=== PATIENT | female | born 1935 | race Caucasian/White ===

== ENCOUNTER 2021-04-26 14:40 | Inpatient (IN) | payer MEDICARE, SELFPAY ==
--- NOTE | ~2021-04-26 | US_ITS ---
EXAMINATION: US ABDOMEN LIMITED CLINICAL INFORMATION: Transaminitis. COMPARISON: None TECHNIQUE: Real-time imaging of the right upper quadrant abdominal viscera. FINDINGS: PANCREAS: Normal. LIVER: The liver is normal in size. The liver contour is normal. Liver echotexture is increased.. No focal hepatic lesion. There is no intrahepatic biliary duct dilatation seen. GALLBLADDER: Normal. The gallbladder is physiologically distended without evidence of stones, sludge, polyps, wall thickening or pericholecystic fluid. COMMON BILE DUCT: Normal in caliber measuring 0.5 cm in diameter. RIGHT KIDNEY: Normal. No hydronephrosis. No renal calculi or focal parenchymal lesions. The kidney measures 8.2 cm in maximum dimension. FREE FLUID: None. US/US abdomen limited IMPRESSION: Echogenic liver. Differential would include fatty infiltration and hepatocellular disease. The liver is normal in size and contour.
--- NOTE | ~2021-04-26 | IR_ITS ---
EXAMINATION: IR THORACIC VERTEBROPLASTY CLINICAL INFORMATION: Severe T12 compression fracture. COMPARISON: CT thoracic spine 05/03/2021 TECHNIQUE: Following explaining fluoroscopy-guided T12 kyphoplasty procedure, benefits and risk, and written consent was obtained from the patient. Patient was placed prone on fluoroscopy table and mid back area was cleaned and draped in the usual sterile manner. 1% lidocaine was injected overlying the skin following localization of right T12 pedicle. Following a very small skin incision, a 10-gauge Kyphon needle was inserted from the skin to the level of periosteum and through the periosteum into the T12 posterior vertebra. A second Kyphon needle was advanced in a similar fashion through the skin. A simple drill was advanced to the right and left needle followed by a high tensile balloon insertion. The balloons were inflated to 200 psi for 5 minutes. Subsequently, the balloons were deflated and premixed polymethylmethacrylate was injected through the right needle followed by left needle. After 10 minutes, both needles were removed after achieving adequate amount of cement within the T12 vertebra. Complete hemostasis achieved at puncture site. Patient tolerated the procedure extremely well. Simple Band-Aid applied postprocedure. IV 2 g Kefzol was administered prior to the exam. FINDINGS: There is a moderate compression fracture T12 vertebra with approximately 50% loss of vertebral height. Post-kyphoplasty, there is improvement in the vertebral height by at least 10-20. No extravasation seen. FLUOROSCOPY TIME: 9.1 minutes DOSE AREA PRODUCT: 2303 uGy-m2 (microgray-meter squared) IR/IR kyphoplasty thoracic IMPRESSION: Successful fluoroscopy-guided bipedicular approach T12 kyphoplasty performed.
--- NOTE | ~2021-04-26 | CT_ITS ---
EXAMINATION: CT THORACIC SPINE WITHOUT CONTRAST CLINICAL INFORMATION: T12 acute compression fracture. COMPARISON: MRI thoracic spine 04/29/2021. TECHNIQUE: Axial 2 mm thin and reformatted 2 mm thin sagittal and coronal images of thoracolumbar spine were obtained from inferior endplate through L2-L3 disc level. This CT examination was performed using dose optimization techniques as appropriate, variously including the following: *Automated exposure control *Adjustment of mA and/or kV according to patient size (this includes techniques or standardized protocols for targeted exams where dose is matched to indication/reason for exam; i.e. extremities or head) *Use of iterative reconstruction technique DLP: 599 mGy-cm FINDINGS: On sagittal reconstructed images there is moderate loss of T12 vertebral height by approximately 50%. There is a small posterior bony component projecting into the spinal canal but causing no spinal canal stenosis. The neural foramina are widely patent at the T11-T12 disc level. The adjacent T11, L1 and L2 vertebral heights are maintained. The T10-T11, T11-T12, T12-L1 and L1-L2 disc heights are normal. There is no disc bulge or spinal canal stenosis. No lytic process seen. The paravertebral soft tissues are normal. CT/CT thoracic spine wo con IMPRESSION: Acute T12 compression fracture with approximately 50% loss of vertebral height. There is a very small bony posterior component projecting into the spinal canal but causing no spinal canal stenosis.
--- NOTE | ~2021-04-26 | CT_ITS ---
EXAMINATION: CT HEAD WITHOUT CONTRAST CT CERVICAL SPINE WITHOUT CONTRAST INDICATION: Fall. TECHNIQUE: A noncontrast CT scan was performed from the skull base to the vertex. A noncontrast CT scan of the cervical spine was performed from the base of the skull through T1 at 2.5 mm and 0.625 mm collimation. Coronal and sagittal reformats were obtained at the acquisition workstation. This CT examination was performed using dose optimization techniques as appropriate, variously including the following: * Automated exposure control * Adjustment of mA and/or kV according to patient size (this includes techniques or standardized protocols for targeted exams where dose is matched to indication/reason for exam; i.e. extremities or head) * Use of iterative reconstruction technique Dose length product is 1200 mGy-cm COMPARISON: None FINDINGS: Head: There is no evidence of acute intracranial hemorrhage or territorial infarction. No abnormal mass effect or midline shift is seen. Urdd-xq-wybbz matter differentiation is well preserved. No extra-axial fluid collections are identified. Mild cerebral volume loss. Patchy periventricular and deep white matter hypoattenuation is consistent with mild small vessel ischemic changes. The osseous structures and soft tissues are normal. The mastoid air cells and visualized portions of the paranasal sinuses are well aerated. Cervical Spine: The atlantooccipital and atlantoaxial articulations remain well aligned. Slight straightening of the normal cervical lordosis. C4 vertebral body grade 1 anterolisthesis. No evidence of acute fracture. Vertebral body heights are maintained. Lsaloflb-js-owfkxt spondylosis, more prominent in the mid to lower cervical spine. Multilevel facet degeneration. No prevertebral soft tissue swelling. The paraspinal soft tissues are unremarkable. No appreciated cervical adenopathy. Slight thyroid gland heterogeneity. Mild biapical pleural-parenchymal scarring. CT/CT cervical spine wo con IMPRESSION: 1. No CT evidence of acute intracranial hemorrhage or territorial infarction. 2. No CT evidence of acute cervical spine fracture. 3. Dsofrjda-pf-tfmxkb cervical spondylosis.
--- NOTE | ~2021-04-26 | CT_ITS ---
EXAMINATION: CT THORACIC SPINE CLINICAL INFORMATION: Status post T12 kyphoplasty. COMPARISON: CT thoracic spine performed earlier today on 05/03/2021. MRI thoracic spine 04/29/2021. TECHNIQUE: Axial 2 mm thin and reformatted 2 mm thin sagittal and coronal images of thoracolumbar spine were obtained from mid T10 through mid L2 vertebrae. This CT examination was performed using dose optimization techniques as appropriate, variously including the following: *Automated exposure control *Adjustment of mA and/or kV according to patient size (this includes techniques or standardized protocols for targeted exams where dose is matched to indication/reason for exam; i.e. extremities or head) *Use of iterative reconstruction technique DLP: 534 mGy-cm. FINDINGS: There is an adequate amount of cement occupying the T12 compression fracture. There is mild improvement in the vertebral height post kyphoplasty. No extravasation of cement visualized. The paravertebral soft tissues are normal. CT/CT thoracic spine post vert IMPRESSION: Adequate amount of cement occupying T12 compression fracture. There is no extravasation of cement visualized. There is no spinal canal compromise. No underlying disc bulge or spinal canal stenosis seen at the adjacent T11-T12 or L1-L2 disc levels.
--- NOTE | ~2021-04-26 | CT_ITS ---
EXAMINATION: CT CHEST WITHOUT CONTRAST CLINICAL INFORMATION: History of fall. COMPARISON: None TECHNIQUE: Multidetector volumetric CT imaging of the chest was done. Axial MIP volume rendering provided. Sagittal and coronal reformatted images were obtained. This CT examination was performed using dose optimization techniques as appropriate, variously including the following: *Automated exposure control *Adjustment of mA and/or kV according to patient size (this includes techniques or standardized protocols for targeted exams where dose is matched to indication/reason for exam; i.e. extremities or head) *Use of iterative reconstruction technique DLP: 268.15 mGy-cm FINDINGS: Evaluation for posttraumatic changes is technically limited since no intravascular contrast was administered. Accordingly, vascular injury, and solid visceral injury within the visualized upper abdomen is not excluded. EDUCATION NURSE: Unremarkable. LUNGS: Hypoventilatory changes are present along with motion related artifacts at both lung bases. Presumed pleural parenchymal scar related changes are noted at both lung apices. Otherwise both lung sullivan are clear. Tracheobronchial tree is patent. No evidence of any lung contusion or hemorrhage. MEDIASTINUM: Vascular injury is not excluded due to lack of contrast. Atherosclerotic disease is present within the aorta and is branches including coronary artery calcifications. The thyroid gland is abnormal and is enlarged. Trace amount of pericardial effusion is noted with Hounsfield value of -17. The heart size is within normal limits. Small sliding hiatal hernia is present. PLEURA: There is no pleural effusion. No pleural mass or thickening. AXILLA: No lymphadenopathy. UPPER ABDOMEN: Unremarkable. OSSEOUS STRUCTURES: Moderate to severe anterior compression fracture of T12 vertebral body is noted without any significant soft tissue hematoma, of indeterminate etiology and age. Evaluation is limited since there are no prior studies available for comparison. CT/CT chest wo con IMPRESSION: 1. Moderate to severe anterior compression fracture of T12 vertebral body, of indeterminate age and etiology. Evaluation is limited since there are no prior studies available for comparison. 2. Evaluation for posttraumatic changes is also technically limited since no intravenous oral contrast was administered. Accordingly, vascular injury as well as solid visceral injury within the visualized upper abdomen is not excluded. 3. Hypoventilatory changes and motion related changes are noted at both lung bases with presumed pleuroparenchymal scar at both lung apices. 4. Trace amount of pericardial effusion. 5. No CT evidence of any displaced rib fracture or hemopneumothorax or lung contusion.
--- NOTE | ~2021-04-26 | MR_ITS ---
EXAMINATION: MR THORACIC SPINE WITHOUT CONTRAST CLINICAL INFORMATION: T12 vertebral fracture. COMPARISON: Chest CT April 26, 2021. TECHNIQUE: MRI of the thoracic spine was obtained using routine sequences without contrast. FINDINGS: There is redemonstration of an acute edematous compression fracture at T12 with up to 60% height loss. A mild amount of retropulsion is present which indents the thecal sac without causing effacement of the ventral subarachnoid space and without compressing the distal spinal cord. No additional compression fracture is seen. The remainder of the vertebral bodies maintain normal height. Mild anterolisthesis is seen at T2 on T3. No moderate or severe disc height loss is seen. Chronic fatty endplate changes are seen across multiple levels from T3 through T11. The thoracic cord signal appears normal. At C6-C7 there is moderate left neural foraminal stenosis. No additional significant spinal canal or neural foraminal stenosis is seen. There are small bilateral pleural effusions. The extraspinal soft tissues otherwise appear normal. MR/MR thoracic spine wo con IMPRESSION: Redemonstration of acute edematous compression fracture at T12 with 60% height loss and mild retropulsion without significant narrowing of the spinal canal.
--- NOTE | 2021-04-26 14:54 | ECG_ITS ---
Test Reason : FALL Blood Pressure : / mmHG Vent. Rate : 081 BPM Atrial Rate : 081 BPM P-R Int : 160 ms QRS Dur : 078 ms QT Int : 386 ms P-R-T Axes : 059 -24 059 degrees QTc Int : 448 ms Sinus rhythm with Premature atrial complexes Septal infarct , age undetermined Abnormal ECG When compared with ECG of 03-FEB-2019 07:26, Premature atrial complexes are now Present Septal infarct is now Present Referred By: Eugenia Clemente Electronically Signed By:FELICIA TOUSSAINT
[2021-04-26 14:57] VITALS: BP 133/43; BP 160/80; PULSE 78; PULSE 88; RESP 18; TEMP 36.6; O2SAT 97; O2SAT 99
--- NOTE | 2021-04-26 15:03 | ED_ITS ---
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 had witnessed fall from standing, she has not been eating well and is shaky post completing bactrim for UTI yesterday complaint: fall Onset (ago): week(s) Fall from: standing Fall witnessed: yes, by family Place fall occurred: home Loss of consciousness: none Prolonged down time: no Symptoms prior to fall: lightheadedness and other (has been shaky recently not eating well, tells me she injured her back yesterday) Context: recent illness and history of frequent falls Location of injury: head, chest and back Severity: moderate Quality: aching and throbbing Associated symptoms (after fall): weakness and lightheaded Related Data Allergies Allergy/AdvReac Type Severity Reaction Status Date / Time No Known Allergies Allergy Unverified 07/09/20 15:38 [No Known Allergies*] Review of Systems Review of Systems: Constitutional : No Fever, pos Chills ENT/Mouth : No Ear Pain, No Hoarseness, No sore throat Eyes: No Eye Pain, No Swelling, No Redness, No Foreign Body Cardiovascular : No Chest Pain, No SOB Respiratory : No Cough, No Dyspnea Gastrointestinal : No Nausea, No Vomiting, No Diarrhea, No abdominal Pain Genitourinary : No Dysuria, No Hematuria Musculoskeletal : no joint pain, No Myalgias, No Joint Swelling, pos back pain Skin : No Skin lacerations, No rash Neuro : pos Weakness, No Numbness, No Loss of Consciousness, No Dizziness, No Headache Psych : No Anxiety/Panic, No Depression Heme/Lymph: no easy bruising, no Lymphadenopathy Endocrine : No Polyuria, No Polydipsia All other systems reviewed and are negative PMFSH Past Medical History Attestation statement: The following information was validated with the patient. Medical History Dementia HLD (hyperlipidemia) HTN (hypertension) UTI (urinary tract infection) Social History Social History (Updated 04/26/21 @ 15:31 by Eugenia Clemente DO) Alcohol intake: never Patient Tobacco Use Status: Never used Tobacco Advance Directives: No Advance Directives Information Provided: Yes Physical Exam Vital Signs: Vital Signs: Last Vital Signs Temp 98 F 04/26/21 14:57 Pulse 78 04/26/21 14:57 Resp 18 04/26/21 14:57 BP 133/43 L 04/26/21 14:57 Pulse Ox 99 04/26/21 14:57 Body Mass Index 0.1 Appearance: Alert. Oriented X2 (issue with time). No acute distress. Eyes: Pupils equal, round and reactive to light. ENT: Pharynx normal. Neck: Normal inspection. Neck supple. CVS: Normal heart rate and rhythm. Pulses normal. Chest: ttp along bilateral lower rib areas Respiratory: No respiratory distress. Breath sounds normal. Abdomen: Soft and non-tender. Back: ttp along lower thoracic and upper lumbar Skin: Skin warm and dry. Normal skin color. Normal skin turgor. Extremities: No lower extremity edema. No calf ttp no hip pain, no pain with ROM of LE or UE Neuro: Oriented X 2 (issue with time). No motor deficit. No sensory deficit. Course Course Course Narrative: signed out pending workup Dr. Cardoza [facility] - Fall [facility] Narrative Medical decision making narrative: 85 yo female hx of HTN, UTIs just finished bactrim course yesterday comes in with frequent falls, poor PO intake and being shaky which has worsened since her abx course - at this time given age and falls will need CT head/neck/chest/lumbar spine for trauma, repeat labs, UA, EKG ordered, IV morphine for pain, dispo per results and findings. ECG Data Attestation: I personally reviewed and interpreted this ECG as follows: ECG interpretation date: 04/26/21 ECG interpretation time: 15:12 Interpretation: Rate: 81 Rhythm: NSR [place]: left Normal P waves. Normal ALONZO. Normal QRS complex. ST T wave : normal no ANA qTC: normal prior studies: no acute ischemia The study has been interpreted contemporaneously by me. . Discharge Plan Discharge Clinical Impression: Falls
--- NOTE | 2021-04-26 15:48 | PC.NURSE ---
multiple attempts for iv access and blood labs have been unsuccessful, awaiting us back from icu to attempt advanced iv placement.
--- NOTE | 2021-04-26 16:40 | PC.NURSE ---
continuing to attempt iv access and blood labs via us, nurse at bedside requiring multiple attempts. provider aware att. wctm.
[2021-04-26 16:45] LABS: MANUAL DIFF FLAG NO
[2021-04-26 16:46] LABS: Basophils Percent Auto 0.3 % (0-2); Eosinophils Percent Auto 0.1 % (0-4); Hemoglobin 13.9 g/dl (12.0-16.0); Imm Gran Abs Auto 0.09 X10*3/uL (0.00-0.03); Imm Gran Pct Auto 0.6 % (0.0-0.4); Lymphocytes Absolute Auto 0.9 X10*3/uL (1.2-4.9); Lymphocytes Percent Auto 6.2 % (20-40); Mean Corpuscular HGB Conc 33.9 g/dl (31.0-35.0); Mean Corpuscular Hemoglobin 27.5 pg (27.0-33.0); Mean Corpuscular Volume 81.2 fL (80-98); Mean Platelet Volume 12.5 fL (9.4-12.3); Monocytes Absolute Auto 0.6 X10*3/uL (0.1-1.2); Monocytes Percent Auto 4.5 % (2-11); Neutrophils Absolute Auto 12.3 X10*3/uL (2.0-8.3); Neutrophils Percent Auto 88.3 % (45-73); Platelet Count 257 X10*3/uL (160-400); Red Blood Count 5.05 X10*6/uL (4.20-5.50); Red Cell Distribution Width 14.3 % (11.0-16.0); White Blood Count 13.9 X10*3/uL (4.8-10.8)
[2021-04-26 16:52] LABS: INTERNATIONAL NORM RATIO 1.2 (0.9-1.1); Prothrombin Time 13.1 SEC (9.9-13.0)
[2021-04-26 16:54] LABS: Partial Thromboplastin Time 31.2 SEC (24.1-38.0)
[2021-04-26] MEDS: Morphine Sulfate 4 MG/ML CARTRIDGE IVPUSH (17:10)
[2021-04-26] MEDS: 0.9 % Sodium Chloride 1,000 ML 999 ML IVCONT ×2 (17:10→17:51)
[2021-04-26] MEDS: ondansetron HCL 4 MG/2 ML VIAL IVPUSH (17:10)
[2021-04-26 17:12] LABS: Anion Gap 20 (12-20); Blood Urea Nitrogen 25 mg/dL (9-16); Calcium 10.4 mg/dL (8.4-10.2); Carbon Dioxide 18 mmol/L (22-29); Chloride 100 mmol/L (96-108); Estimated Glomerular Filt Rate 31; Glucose Random 105 mg/dL (60-115); Potassium 5.6 mmol/L (3.3-5.1); Sodium 132 mmol/L (135-145)
[2021-04-26 17:17] LABS: Alanine Aminotransferase 197 U/L (0-31); Albumin Level 4.2 g/dL (3.5-5.0); Alkaline Phosphatase 92 U/L (39-117); Aspartate Amino Transferase 139 U/L (5-31); Bilirubin Direct 0.6 mg/dL (0.0-0.5); Bilirubin Total 1.5 mg/dL (0.0-1.0); Magnesium 2.4 mg/dL (1.6-2.6); Total Protein 8.2 g/dL (6.5-8.0); Troponin-I High Sensitivity 3.9 ng/L (<3.5-17.0)
[2021-04-26] MEDS: Insulin Regular, Human 100 UNIT/ML 3 ML VIAL 10 UNIT IVPUSH (17:51)
[2021-04-26 19:35] LABS: Glucose Urine UA >=1000 MG/DL (NEG); Leukocyte Esterase Urine NEG (NEG); Nitrite Urine NEG (NEG); Urine Blood NEG (NEG); Urine Ketones 15 MG/DL (NEG); Urine Protein NEG (NEG-TRACE)
[2021-04-26 19:36] LABS: Appearance Urine CLEAR; Color Urine YELLOW
[2021-04-26 19:36] LABS: COVID-19 Test Negative (Negative); IDNOW Serial# 9DD0AD1C
[2021-04-26 19:46] LABS: Bacteria Urine TRACE /LPF; Mucus Urine TRACE /LPF; RBC Urine 0-2 /HPF (0); WBC Urine 0-2 /HPF (0-4)
[2021-04-26 20:25] VITALS: PULSE 71; RESP 18; TEMP 36.8; O2SAT 95
--- NOTE | 2021-04-26 20:49 | P.HPHOSP_ITS ---
History of Present Illness Date of Service: 04/26/21 <Ish Han MD - Last Filed: 05/12/21 19:22> Chief Complaint: Fall <Ish Han MD - Last Filed: 05/12/21 19:22> 85-year-old female with a past medical history of hypertension, hyperlipidemia, recurrent UTI, question early dementia presented to the hospital with a chief complaint of fall. Most of the history obtained from the patient and patient's son Reportedly patient has been having recurrent falls- about 7 falls in the past 3 months; today patient was trying to get of the stair showed only she fell backwards and hit her head; witnessed by a home health aide. Denies any loss of consciousness. Patient denies any chest pain palpitations lightheadedness or dizziness before or after the episode. Denies any numbness tingling or focal weakness. Post fall complains of back pain. Denies any urinary retention or stool incontinence. As per the patient's son post episode patient had an episode of vomiting with pink-tinged vomitus. Patient usually walks with the help of a walker at home and has physical therapy twice a week. Denies any difficulty swallowing. Denies any urinary complaints patient's son reported that patient had 2 episodes of UTI in the past couple weeks; finished a course of Bactrim yesterday. Also mentioned that whenever she gets UTI patient becomes confused / encephalopathic. patient's son also reported that over the past few days patient has not been eating good Review of all other systems is negative except mentioned above ER course: Per ER team patient CT head showed no acute intracranial process; CT C-spine showed no acute fracture but noted moderate to severe cervical spine spondy litis; CT chest showed T12 compression fracture -nonfocal examination. On labs patient noted to have mild hyperkalemia, LILY, transaminitis. Admitted for further management. <Ish Han MD - Last Filed: 05/12/21 19:22> [facility] Medical History: Medical History Dementia HLD (hyperlipidemia) HTN (hypertension) UTI (urinary tract infection) <Ish Han MD - Last Filed: 05/12/21 19:22> Social History: Social History Household Members: Family Household Members Other:: pt lives with son, has [employer] Housing: House Do you presently have visiting nurse or other home services: No (unsure) Alcohol intake: never Patient Tobacco Use Status: Never used Tobacco service: No Current occupational status: retired <Ish Han MD - Last Filed: 05/12/21 19:22> Meds Allergies/Adverse reactions: Allergies Allergy/AdvReac Type Severity Reaction Status Date / Time strawberry Allergy Unknown Verified 04/28/21 19:32 <Ish Han MD - Last Filed: 05/12/21 19:22> Active Medications: Current Medications Generic Name Dose Route Start Last Admin Trade Name Freq PRN Reason Stop Dose Admin Atorvastatin Calcium 10 mg 04/27/21 09:00 Atorvastatin Calcium 10 Mg Tablet PO DAILY [facility] Heparin Sodium (Porcine) 5,000 unit 04/26/21 20:30 Heparin Sodium,Porcine 5,000 Unit/Ml Vial SUBCUT Q12H [facility] Sodium Chloride 1,000 mls @ 50 mls/hr 04/26/21 20:45 Ns IVCONT .Q20H [facility] Lidocaine HCl 1 appl 04/27/21 09:00 Lidocaine 4 % Cream Kit TOPICAL DAILY [facility] Protocol Oxycodone HCl 5 mg 04/26/21 20:38 Oxycodone Hcl Immed Release 5 Mg Tablet PO Q6H PRN Breakthrough Pain Pantoprazole Sodium 40 mg 04/27/21 06:30 Pantoprazole Sodium 40 Mg/10 Ml Vial IVPUSH DAILY@0630 [facility] Quetiapine Fumarate 25 mg 04/27/21 09:00 Quetiapine Fumarate 25 Mg Tablet PO DAILY [facility] Senna 17.2 mg 04/26/21 20:24 Sennosides 8.6 Mg Tablet PO BEDTIME PRN Constipation Sodium Chloride 3 ml 04/27/21 00:00 0.9 % Sodium Chloride Flush 3 Ml Syringe IVFLUSH QSHIFT [facility] <Ish Han MD - Last Filed: 05/12/21 19:22> Home medications: Home Medications Medication Instructions Recorded Confirmed Last Taken Type amlodipine 10 mg tablet 1 tab PO DAILY 04/26/21 04/26/21 Unknown History atorvastatin 10 mg tablet 1 tab PO DAILY 04/26/21 04/26/21 Unknown History <Ish Han MD - Last Filed: 05/12/21 19:22> Physical Exam Vital Signs and Narrative: Vital Signs: Last Vital Signs Temp 98.2 F 04/26/21 20:25 Pulse 71 04/26/21 20:25 Resp 18 04/26/21 20:25 BP 133/43 L 04/26/21 14:57 Pulse Ox 95 04/26/21 20:25 Body Mass Index 0.1 <Ish Han MD - Last Filed: 05/12/21 19:22> Gen: Appears be in no acute distress HEENT: NCAT, dry mucosa. Pulmonary: mildly coarse breath sounds CVS: Normal S1-S2 Abdomen: BS+, Soft, Nontender Extremities: Warm well perfused Neuro: Alert and awake. Moves all extremities equally; sensations equal bilaterally; eild-mk-lzps test was not performed given pain in the back; orsepy-yt-zffn test was fairly within normal limits <Ish Han MD - Last Filed: 05/12/21 19:22> Results Labs CBC and Chem 7: : 05/04/21 05:07 05/06/21 06:03 <Ish Han MD - Last Filed: 05/12/21 19:22> Labs: Laboratory Results - last 24 hr 04/26/21 04/26/21 04/26/21 16:39 16:39 16:39 MCV 81.2 MCH 27.5 MCHC 33.9 RDW 14.3 Plt Count 257 MPV 12.5 H Immature Gran % (Auto) 0.6 H Neut % (Auto) 88.3 H Lymph % (Auto) 6.2 L [place] % (Auto) 4.5 Eos % (Auto) 0.1 Baso % (Auto) 0.3 Lymph # (Auto) 0.9 L [place] # (Auto) 0.6 Eos # (Auto) 0.0 Baso # (Auto) 0.0 Abs Immat Gran (auto) 0.09 H Absolute Neuts (auto) 12.3 H Absolute Nucleated RBC 0.000 Nucleated RBC % (auto) 0.0 PT 13.1 H INR 1.2 H APTT 31.2 Anion Gap 20 Estim Creat Clear Calc 25.0 Estimated GFR 31 Random Glucose 105 Calcium 10.4 H Magnesium Total Bilirubin Direct Bilirubin AST ALT Alkaline Phosphatase Total Creatine Kinase Troponin I High Sens Total Protein Albumin Urine Color Urine Appearance Urine pH Ur Specific [place] Urine Protein Urine Glucose (UA) Urine Ketones Urine Blood Urine Nitrite Ur Leukocyte Esterase Urine RBC Urine WBC Ur Squamous Epith Cells Urine Bacteria Hyaline Casts Urine Mucus COVID-19 (GIANNI) COVID-19 Clin Com 04/26/21 04/26/21 04/26/21 16:39 16:39 19:15 MCV MCH MCHC RDW Plt Count MPV Immature Gran % (Auto) Neut % (Auto) Lymph % (Auto) [place] % (Auto) Eos % (Auto) Baso % (Auto) Lymph # (Auto) Carson # (Auto) Eos # (Auto) Baso # (Auto) Abs Immat Gran (auto) Absolute Neuts (auto) Absolute Nucleated RBC Nucleated RBC % (auto) PT INR APTT Anion Gap Estim Creat Clear Calc Estimated GFR Random Glucose Calcium Magnesium 2.4 Total Bilirubin 1.5 H Direct Bilirubin 0.6 H AST 139 H ALT 197 H Alkaline Phosphatase 92 Total Creatine Kinase 17 L Troponin I High Sens 3.9 Total Protein 8.2 H Albumin 4.2 Urine Color Urine Appearance Urine pH Ur Specific [place] Urine Protein Urine Glucose (UA) Urine Ketones Urine Blood Urine Nitrite Ur Leukocyte Esterase Urine RBC Urine WBC Ur Squamous Epith Cells Urine Bacteria Hyaline Casts Urine Mucus COVID-19 (GIANNI) Negative COVID-19 Clin Com See Note 04/26/21 19:28 MCV MCH MCHC RDW Plt Count MPV Immature Gran % (Auto) Neut % (Auto) Lymph % (Auto) [place] % (Auto) Eos % (Auto) Baso % (Auto) Lymph # (Auto) [place] # (Auto) Eos # (Auto) Baso # (Auto) Abs Immat Gran (auto) Absolute Neuts (auto) Absolute Nucleated RBC Nucleated RBC % (auto) PT INR APTT Anion Gap Estim Creat Clear Calc Estimated GFR Random Glucose Calcium Magnesium Total Bilirubin Direct Bilirubin AST ALT Alkaline Phosphatase Total Creatine Kinase Troponin I High Sens Total Protein Albumin Urine Color YELLOW Urine Appearance CLEAR Urine pH 6.0 Ur Specific [place] 1.020 Urine Protein NEG Urine Glucose (UA) >=1000 H Urine Ketones 15 Urine Blood NEG Urine Nitrite NEG Ur Leukocyte Esterase NEG Urine RBC 0-2 Urine WBC 0-2 Ur Squamous Epith Cells NONE Urine Bacteria TRACE Hyaline Casts 5-9 Urine Mucus TRACE COVID-19 (GIANNI) COVID-19 Clin Com <Ish Han MD - Last Filed: 05/12/21 19:22> Imaging Radiologist's Impressions: Impressions Cervical Spine CT 04/26/21 14:54 IMPRESSION: 1. No CT evidence of acute intracranial hemorrhage or territorial infarction. 2. No CT evidence of acute cervical spine fracture. 3. Vxirurjc-fv-jyudpr cervical spondylosis. Chest CT 04/26/21 14:54 IMPRESSION: 1. Moderate to severe anterior compression fracture of T12 vertebral body, of indeterminate age and etiology. Evaluation is limited since there are no prior studies available for comparison. 2. Evaluation for posttraumatic changes is also technically limited since no intravenous oral contrast was administered. Accordingly, vascular injury as well as solid visceral injury within the visualized upper abdomen is not excluded. 3. Hypoventilatory changes and motion related changes are noted at both lung bases with presumed pleuroparenchymal scar at both lung apices. 4. Trace amount of pericardial effusion. 5. No CT evidence of any displaced rib fracture or hemopneumothorax or lung contusion. Head CT 04/26/21 14:[address]: 1[address] evidence of acute intracranial hemorrhage or territorial infarction. 2. No CT evidence of acute cervical spine fracture. 3. Azfficio-rw-vzeutk cervical spondylosis. <Ish Han MD - Last Filed: 05/12/21 19:22> Assessment and Plan (1) Acute kidney failure: Status: Acute <Ish Han MD - Last Filed: 05/12/21 19:22> 85-year-old female with a past medical history of hypertension, hyperlipidemia, question early dementia, recurrent UTI, history of encephalopathy presented to the hospital with a chief complaint of recurrent falls; recently finished a course of Bactrim for UTI; noted to have T12 compression fracture, LILY, hyperkalemia, transaminitis. Recurrent falls: Unclear etiology. Will obtain folate and B12. Patient is already on vitamin-D supplementation at home. Patient has physical therapy twice a week at home. Fall precautions PT/OT Neurology consult for further recommendations CT head showed no acute findings. moderate to severe cervical spine spondylosis/T12 compression fracture: Patient currently grossly nonfocal on examination PT/ OT as mention. Pain control. Patient in patient's son was made aware that no neurosurgeon available - agreed to stay at [place]. Recommended outpatient follow-up with [facility]surgery Clinic hyperkalemia: Patient is being given IV fluids. Will repeat BMP. Likely in the setting of Bactrim use. LILY: Prerenal. Gentle IV fluids. Avoid nephrotoxins. Hold home irbesartan. Hypertension: Patient's blood pressure is on the soft side: Hold home antihypertensives including amlodipine. Orthostatic vitals. Transaminitis: Will obtain right upper quadrant ultrasound and acute hepatitis panel. Trend liver panel. poor intake: Multifactorial. Nutrition consult. Patient/family denies any difficulty swallowing. DVT prophylaxis: Subcu heparin twice daily Code status: Full code he <Ish Han MD - Last Filed: 05/12/21 19:22> Quality Stroke Does the patient have a stroke diagnosis?: No <Ish Han MD - Last Filed: 05/12/21 19:22> VTE Prior VTE?: No <Ish Han MD - Last Filed: 05/12/21 19:22> VTE Risk Level:: Medical - moderate - high <Ish Han MD - Last Filed: 05/12/21 19:22> VTE Device Contraindication: N/A - Device Ordered <Ish Han MD - Last Filed: 05/12/21 19:22> VTE Drug Contraindication: N/A - Med Ordered <Ish Han MD - Last Filed: 05/12/21 19:22>
[2021-04-26] MEDS: Heparin Sodium,Porcine 5,000 UNIT/ML VIAL 5000 UNIT SUBCUT (21:07)
[2021-04-26] MEDS: 0.9 % Sodium Chloride 1,000 ML 50 ML IVCONT (21:08)
[2021-04-26 21:25] VITALS: BP 127/46; PULSE 72; RESP 22; TEMP 36.8; O2SAT 93
[2021-04-26 22:34] VITALS: BP 140/64; PULSE 77; RESP 18; TEMP 36.4; O2SAT 93
[2021-04-26 22:37] LABS: Anion Gap 15 (12-20); Blood Urea Nitrogen 20 mg/dL (9-16); Calcium 9.3 mg/dL (8.4-10.2); Carbon Dioxide 16 mmol/L (22-29); Chloride 107 mmol/L (96-108); Glucose Random 77 mg/dL (60-115); Potassium 4.3 mmol/L (3.3-5.1); Sodium 134 mmol/L (135-145)
[2021-04-26 22:41] LABS: Troponin-I High Sensitivity 5.3 ng/L (<3.5-17.0)
[2021-04-26 23:45] VITALS: BP 144/62; PULSE 72; RESP 18; TEMP 36.3; O2SAT 94
[2021-04-26 23:56] VITALS: RESP 18
[2021-04-27] VITALS (7 sets, daily range): BP systolic 138–158; BP diastolic 61–70; PULSE 60–84; RESP 15–18; TEMP 36.1–36.4; O2SAT 95–97
[2021-04-27] MEDS: Pantoprazole Sodium 40 MG/10 ML VIAL IVPUSH (05:24)
[2021-04-27 05:45] LABS: MANUAL DIFF FLAG NO
[2021-04-27 05:51] LABS: Basophils Percent Auto 0.5 % (0-2); Eosinophils Absolute Auto 0.1 X10*3/uL (0.0-0.4); Eosinophils Percent Auto 0.7 % (0-4); Hematocrit 37.4 % (37-47); Hemoglobin 12.1 g/dl (12.0-16.0); Imm Gran Abs Auto 0.03 X10*3/uL (0.00-0.03); Imm Gran Pct Auto 0.4 % (0.0-0.4); Lymphocytes Absolute Auto 1.4 X10*3/uL (1.2-4.9); Lymphocytes Percent Auto 18.5 % (20-40); Mean Corpuscular HGB Conc 32.4 g/dl (31.0-35.0); Mean Corpuscular Hemoglobin 26.9 pg (27.0-33.0); Mean Corpuscular Volume 83.1 fL (80-98); Mean Platelet Volume 12.9 fL (9.4-12.3); Monocytes Absolute Auto 0.7 X10*3/uL (0.1-1.2); Monocytes Percent Auto 9.5 % (2-11); Neutrophils Absolute Auto 5.2 X10*3/uL (2.0-8.3); Neutrophils Percent Auto 70.4 % (45-73); Platelet Count 197 X10*3/uL (160-400); Red Cell Distribution Width 14.4 % (11.0-16.0); White Blood Count 7.4 X10*3/uL (4.8-10.8)
[2021-04-27 06:26] LABS: Magnesium 2.1 mg/dL (1.6-2.6)
[2021-04-27 06:33] LABS: Anion Gap 13 (12-20); Blood Urea Nitrogen 17 mg/dL (9-16); Calcium 9.5 mg/dL (8.4-10.2); Carbon Dioxide 18 mmol/L (22-29); Chloride 107 mmol/L (96-108); Estimated Glomerular Filt Rate 44; Glucose Random 83 mg/dL (60-115); Potassium 4.4 mmol/L (3.3-5.1); Sodium 134 mmol/L (135-145)
[2021-04-27 06:36] LABS: Alanine Aminotransferase 143 U/L (0-31); Albumin Level 3.5 g/dL (3.5-5.0); Alkaline Phosphatase 78 U/L (39-117); Aspartate Amino Transferase 91 U/L (5-31); Bilirubin Direct 0.5 mg/dL (0.0-0.5); Bilirubin Total 1.3 mg/dL (0.0-1.0); Total Protein 6.7 g/dL (6.5-8.0)
[2021-04-27 06:46] LABS: Thyroid Stimulating Hormone 0.37 uIU/mL (0.32-4.0)
[2021-04-27 08:33] LABS: Folate 3.6 ng/mL (> or = 4.0); Vitamin B12 484 pg/mL (200-900)
[2021-04-27] MEDS: Heparin Sodium,Porcine 5,000 UNIT/ML VIAL 5000 UNIT SUBCUT ×2 (09:26→21:20)
[2021-04-27] MEDS: QUEtiapine Fumarate 25 MG TABLET PO (09:26)
[2021-04-27] MEDS: Atorvastatin Calcium 10 MG TABLET PO (09:26)
[2021-04-27] MEDS: Lidocaine 4 % Cream KIT 1 APPL TOPICAL (09:36)
--- NOTE | 2021-04-27 09:46 | P.CNGI_ITS ---
History of Present Illness Data of Consult Service Date: 04/27/21 Requesting physician: Ish Han Primary Care Provider: Unknown Physician HPI Reason for consult: abn LFT 85-year-old female with a past medical history of hypertension, hyperlipidemia, recurrent UTI, possible early dementia who I am asked to see for abn LFT hx from son and daughter in law, some from patient but variable quality of info due to dementia She initially presented with recurrent fall history and back pain. She Denies any loss of consciousness. Patient denies any chest pain palpitations lightheadedness or dizziness before or after the episode and no numbness tingling or focal weakness. after the most recent epsidoe prior to admission she had pink tinged emesis. Denies melena, no rectal bleeding. She had been dx with UTI and just finished bactrim day before. Labs checked and mils ASt, ALT elevation--bili and AP nml Imaging revealed compression fracture at T12 US with echogenic liver, no focal lesion Review of Systems Review of Systems: Constitutional : No Weight loss, No Fever, No Chills ENT/Mouth : No sore throat, No Rhinorrhea Eyes: No Swelling, No Redness Cardiovascular : No Chest Pain, No SOB, No Edema Respiratory : No Cough, No Sputum, No Wheezing Gastrointestinal : see HPI Genitourinary : NO Dysuria, No Urinary Frequency, No Hematuria, No Urgency Musculoskeletal : + back pain, + Myalgias, No Joint Swelling Skin : No Skin Lesions, No rash Neuro : No Weakness, No Numbness, No Dizziness, No Headache Psych : No Anxiety/Panic, No Depression Heme/Lymph: No Bruising, No Lymphadenopathy Endocrine : No Polyuria, No Polydipsia All other systems reviewed and are negative. [facility] Past Medical History Medical History Dementia HLD (hyperlipidemia) HTN (hypertension) UTI (urinary tract infection) Social History Social History (Updated 04/26/21 @ 15:31 by Eugenia Clemente DO) Household Members: Family Household Members Other:: pt lives with son, has [employer] Housing: House Do you presently have visiting nurse or other home services: No (unsure) Alcohol intake: never Patient Tobacco Use Status: Never used Tobacco Use of substances other than those prescribed or required for medical reasons: No Currently Displaying Signs/Symptoms of Drug Intoxication Withdrawal: No Have you been hit, kicked, punched, or otherwise hurt by someone within the past year? If so, by whom?: No Do you feel safe in your current relationship?: No Current Relationship Is there a partner from a previous relationship who is making you feel unsafe now?: No Are you made to feel afraid or neglected: No Advance Directives: No Advance Directives Information Provided: Yes Do you have thoughts of harming others: None Do you have a plan to hurt others: No Plan Recently lost weight without trying: Unsure Nutrition Risks: No Nutritional Risk service: No Current occupational status: retired [employer] Allergies Allergy/AdvReac Type Severity Reaction Status Date / Time No Known Allergies Allergy Verified 04/26/21 20:21 [No Known Allergies*] Active Medications: Current Medications Generic Name Dose Route Start Last Admin Trade Name Freq PRN Reason Stop Dose Admin Atorvastatin Calcium 10 mg 04/27/21 09:00 04/27/21 09:26 Atorvastatin Calcium 10 Mg Tablet PO 10 mg DAILY BELEM Administration Heparin Sodium (Porcine) 5,000 unit 04/26/21 20:30 04/27/21 09:26 Heparin Sodium,Porcine 5,000 Unit/Ml Vial SUBCUT 5,000 unit Q12H BELEM Administration Sodium Chloride 1,000 mls @ 50 mls/hr 04/26/21 20:45 04/26/21 21:08 Ns IVCONT 50 mls/hr .Q20H BELEM Administration Lidocaine HCl 1 appl 04/27/21 09:00 04/27/21 09:36 Lidocaine 4 % Cream Kit TOPICAL 1 appl DAILY BELEM Administration Protocol Oxycodone HCl 5 mg 04/26/21 20:38 Oxycodone Hcl Immed Release 5 Mg Tablet PO Q6H PRN Breakthrough Pain Pantoprazole Sodium 40 mg 04/27/21 06:30 04/27/21 05:24 Pantoprazole Sodium 40 Mg/10 Ml Vial IVPUSH 40 mg DAILY@0630 BELEM Administration Quetiapine Fumarate 25 mg 04/27/21 09:00 04/27/21 09:26 Quetiapine Fumarate 25 Mg Tablet PO 25 mg DAILY BELEM Administration Senna 17.2 mg 04/26/21 20:24 Sennosides 8.6 Mg Tablet PO BEDTIME PRN Constipation Sodium Chloride 3 ml 04/27/21 00:00 04/27/21 09:26 0.9 % Sodium Chloride Flush 3 Ml Syringe IVFLUSH Not Given QSHIFT [facility] Home Medications Medication Instructions Recorded Confirmed Last Taken Type amlodipine 1 tab PO DAILY 04/26/21 04/26/21 Unknown History atorvastatin 1 tab PO DAILY 04/26/21 04/26/21 Unknown History irbesartan 1 tab PO DAILY 04/26/21 04/26/21 Unknown History quetiapine 1 tab PO DAILY 04/26/21 04/26/21 Unknown History sulfamethoxazole-trimethoprim 1 tab PO Q12H 04/26/21 04/26/21 Unknown History Physical Exam Vital Signs: Vital Signs: Last Vital Signs Temp 97.6 F 04/27/21 07:06 Pulse 60 04/27/21 08:20 Resp 18 04/27/21 07:06 BP 138/61 04/27/21 08:20 Pulse Ox 95 04/27/21 08:20 Body Mass Index 0.1 EXAM: GENERAL: The patient is frail VITAL SIGNS:see workflow HEENT: Nonicteric sclerae, PERRLA, EOMI. Oropharynx clear. Moist mucous membranes. Conjunctivae appear well perfused. No thyroid mass. CHEST: Chest wall is nontender. HEART: Regular rate and rhythm without murmurs. LUNGS: Clear to auscultation bilaterally. ABDOMEN: Soft, positive bowel sounds, nontender, no organomegaly.no flank tenderness SKIN: No rash, no excessive bruising, petechiae, or purpura. NEUROLOGIC: Cranial nerves II-XII intact without motor/sensory deficit. AAO x 2 Psych- memory impairment, but affect is nml Results Labs CBC & Chem 7: 04/27/21 05:21 04/27/21 05:21 Labs: Short CBC 04/26/21 04/26/21 04/27/21 Range/Units 16:39 16:39 05:21 WBC 13.9 H 7.4 (4.8-10.8) X10*3/uL Hgb 13.9 12.1 (12.0-16.0) g/dl Hct 41.0 37.4 (37-47) % Plt Count 257 197 (160-400) X10*3/uL AST 139 H (5-31) U/L ALT 197 H (0-31) U/L 04/27/21 Range/Units 05:21 WBC (4.8-10.8) X10*3/uL Hgb (12.0-16.0) g/dl Hct (37-47) % Plt Count (160-400) X10*3/uL AST 91 H (5-31) U/L ALT 143 H (0-31) U/L BMP 04/26/21 04/26/21 04/27/21 16:39 21:56 05:21 Sodium 132 L 134 L 134 L Potassium 5.6 H 4.3 D 4.4 Chloride 100 107 107 Carbon Dioxide 18 L 16 L 18 L BUN 25 H 20 H 17 H Creatinine 1.57 H 1.31 1.17 Calcium 10.4 H 9.3 D 9.5 Cardiac Enzymes 04/26/21 Range/Units 16:39 Total Creatine Kinase 17 L (26-140) U/L Liver Function 04/26/21 04/27/21 Range/Units 16:39 05:21 Total Bilirubin 1.5 H 1.3 H (0.0-1.0) mg/dL Direct Bilirubin 0.6 H 0.5 (0.0-0.5) mg/dL AST 139 H 91 H (5-31) U/L ALT 197 H 143 H (0-31) U/L Alkaline Phosphatase 92 78 (39-117) U/L Albumin 4.2 3.5 (3.5-5.0) g/dL Urine 04/26/21 Range/Units 19:28 Urine Color YELLOW Urine Appearance CLEAR Urine pH 6.0 (5.0-8.0) Ur Specific [place] 1.020 (1.005-1.025) Urine Protein NEG (NEG-TRACE) MG/DL Urine Glucose (UA) >=1000 H (NEG) MG/DL Assessment and Plan (1) Elevated LFTs: Status: Acute (2) Falls: Qualifiers: Encounter type: initial encounter Qualified Code(s): W19.XXXA - Unspecified fall, initial encounter Status: Acute 1/ Abn LFT suspect 2/2 recent abx use vs from fall and muscle trauma. May have HUYNH as well 2/ [place] tinged emesis in setting of fall and pain, HGB stable does not appear to be too concerning at this time, may be some drop due to tissue injusry and bruising, fluids and dilution. PLAN; 1/ Trend LFT< check CPK 2/ cont to monitor HGB if falls further then can work up for GI blood loss, but may also be from bruising and submucosal bleeding Procedures Date of Service Date of Service: 04/27/21
--- NOTE | 2021-04-27 09:50 | MHC.CM.PN ---
CM met briefly at bedside with Patient and also spoke with Son/HCP/Cassius at [phone] and addressed IMM, providing them with the original and by placing a copy on the chart. Patient lives in a house with her Son/Cassius and has 24 hour care between her 2 Sons, [id number] and privately hired [employer]. Patient was active with [facility]CO[facility] and the goal for dc is [facility]; CM has initiated and will follow for dc planning. PCP/MOSAICIST is Vashti Mccall.Patient has a rollator.
--- NOTE | 2021-04-27 10:31 | MHC.CLN ---
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
--- NOTE | 2021-04-27 12:29 | P.CNNE_ITS ---
History of Present Illness Data of Consult Service Date: 04/27/21 Primary Care Provider: Unknown Physician HPI Reason for consult: Advanced Alzheimer's disease. Multiple falls with vertebral fracture T12 This is a 85-year-old woman with a history of Alzheimer's disease for 2-4 years that has been slowly getting worse. For the last 3-1/2 months she has been living with one of her sons who takes care of her. She frequently doesn't recognize who he is and does not recognize the [id number] and becomes agita chelsey because of her. She's had several falls because she loses her balance and may not use the walker. She sometimes gets up in the night and wanders. On this particular admission, she took a step from one room to the other lost her balance, fell backwarrds hitting the back of her head on some carpet but landed on her back and developed severe back pain with a T12 compression fracture. The patient requires care 24 7. She refuses to bathe. He personal hygiene issues and safety issues are present. She is given a melatonin 10 mg and cervical 10 mg at night to sedate her and help her sleep but it makes her very limp. Sometimes she gets up in the night and wanders. She was evaluated by Dr. Mondragon in [place] a year ago. She is currently on no other medications for the Alzheimer's disease. Review of Systems Eyes: Eyes: Reports no additional eye complaints ENT: Reports system reviewed and no additional complaints, except as documented Cardiovascular: Cardiovascular: Reports no additional cardiovascular complaints Respiratory: Respiratory: Reports no additional respiratory complaints Gastrointestinal: Gastrointestinal: Reports no additional gastrointestinal c omplaints Musculoskeletal: Musculoskeletal: Reports no additional musculoskeletal complaints Integumentary/Breasts: Skin/Breast: Reports system reviewed and no additional complaints, except as docu Neurologic: Reports as per HPI Psychiatric: Psychiatric: Reports as per HPI Endocrine: Endocrine: Reports no additional endocrine complaints Hematologic/Lymphatic: Hematologic/Lymphatic: Reports no additional hematologic/lymphatic complaints Allergic/Immunologic: Allergic/Immunologic: Reports no additional allergic/immunologic complaints [facility] Past Medical History Medical History Dementia HLD (hyperlipidemia) HTN (hypertension) UTI (urinary tract infection) Social History Social History (Updated 04/26/21 @ 15:31 by Eugenia Clemente DO) Household Members: Family Household Members Other:: pt lives with son, has [employer]IOGR[employer]AM[employer]GR[employer]HER Housing: House Do you presently have visiting nurse or other home services: No (unsure) Alcohol intake: never Patient Tobacco Use Status: Never used Tobacco Use of substances other than those prescribed or required for medical reasons: No Currently Displaying Signs/Symptoms of Drug Intoxication Withdrawal: No Have you been hit, kicked, punched, or otherwise hurt by someone within the past year? If so, by whom?: No Do you feel safe in your current relationship?: No Current Relationship Is there a partner from a previous relationship who is making you feel unsafe no w?: No Are you made to feel afraid or neglected: No Advance Directives: No Advance Directives Information Provided: Yes Do you have thoughts of harming others: None Do you have a plan to hurt others: No Plan Recently lost weight without trying: Unsure Nutrition Risks: No Nutritional Risk service: No Current occupational status: retired Meds Allergies Allergy/AdvReac Type Severity Reaction Status Date / Time No Known Allergies Allergy Verified 04/26/21 20:21 [No Known Allergies*] Active Medications: Current Medications Generic Name Dose Route Start Last Admin Trade Name Freq PRN Reason Stop Dose Admin Atorvastatin Calcium 10 mg 04/27/21 09:00 04/27/21 09:26 Atorvastatin Calcium 10 Mg Tablet PO 10 mg DAILY BELEM Administration Heparin Sodium (Porcine) 5,000 unit 04/26/21 20:30 04/27/21 09:26 Heparin Sodium,Porcine 5,000 Unit/Ml Vial SUBCUT 5,000 unit Q12H BELEM Administration Sodium Chloride 1,000 mls @ 50 mls/hr 04/26/21 20:45 04/26/21 21:08 Ns IVCONT 50 mls/hr .Q20H BELEM Administration Lidocaine HCl 1 appl 04/27/21 09:00 04/27/21 09:36 Lidocaine 4 % Cream Kit TOPICAL 1 appl DAILY BELEM Administration Protocol Oxycodone HCl 5 mg 04/26/21 20:38 Oxycodone Hcl Immed Release 5 Mg Tablet PO Q6H PRN Breakthrough Pain Pantoprazole Sodium 40 mg 04/27/21 06:30 04/27/21 05:24 Pantoprazole Sodium 40 Mg/10 Ml Vial IVPUSH 40 mg DAILY@0630 BELEM Administration Quetiapine Fumarate 25 mg 04/27/21 09:00 04/27/21 09:26 Quetiapine Fumarate 25 Mg Tablet PO 25 mg DAILY BELEM Administration Senna 17.2 mg 04/26/21 20:24 Sennosides 8.6 Mg Tablet PO BEDTIME PRN Constipation Sodium Chloride 3 ml 04/27/21 00:00 04/27/21 09:26 0.9 % Sodium Chloride Flush 3 Ml Syringe IVFLUSH Not Given QSHIFT [facility] Home Medications Medication Instructions Recorded Confirmed Last Taken Type amlodipine 1 tab PO DAILY 04/26/21 04/26/21 Unknown History atorvastatin 1 tab PO DAILY 04/26/21 04/26/21 Unknown History irbesartan 1 tab PO DAILY 04/26/21 04/26/21 Unknown History quetiapine 1 tab PO DAILY 04/26/21 04/26/21 Unknown History sulfamethoxazole-trimethoprim 1 tab PO Q12H 04/26/21 04/26/21 Unknown History Physical Exam Vital Signs: Vital Signs: Last Vital Signs Temp 97.6 F 04/27/21 11:04 Pulse 67 04/27/21 11:04 Resp 18 04/27/21 11:04 BP 149/67 H 04/27/21 11:04 Pulse Ox 95 04/27/21 11:04 Body Mass Index 0.1 Const: General: comfortable, no acute distress and well developed Nutritional Appearance: well nourished Orientation/consciousness: oriented to person HENMT: Head: Yes normal to inspection, Yes normocephalic and Yes atraumatic Ears: hearing grossly normal bilaterally General nose exam: Normal external nose present Face and sinus: Yes normal facial exam Mouth: Normal oral and palatal mucosa present Eyes: General: appearance normal, both eyes and all related structures Visual Sullivan: normal visual sullivan by confrontation Alignment and Position: alignment normal Periorbital: periorbital findings normal Eyelids: Yes eyelids normal Conjunctivae: conjunctivae normal Sclerae: sclerae normal Corneas: corneas normal Pupils: Equal, round and reactive pupils present and Pupil accommodation reflex normal EOM: EOMs intact bilaterally Direct Ophthalmoscopy: normal light reflex Neck: Neck: Yes normal visual inspection, Yes full ROM and Yes no meningeal signs Thyroid: Thyroid normal Carotids: normal carotid upstroke and bounding pulses Chest: Chest palpation & inspection: normal inspection of the chest Resp: Effort & Inspection: normal respiratory effort Auscultation: clear to auscultation bilaterally Cardio: Rate: regular rate Rhythm: regular rhythm Heart sounds: S1 normal heart sound present and S2 normal heart sound present Peripheral pulses: Peripheral pulses 2+ throughout GI: Inspection: Yes normal to inspection Percussion: Yes normal to percussion Auscultation: normal bowel sounds Rectal Exam - Female: defer red Back/Spine/Pelvis: Cervical Spine: normal cervical lordosis and cervical ROM normal Thoracic/Lumbar Spine: thoracic and lumbar spine normal to inspection Skin: General skin exam: no rashes or lesions noted Neuro: Other: She is lethargic, possibly from the morphine that was given but can be aroused. Does not talk much or follow commands and the does not provide any information. All information was obtained from her son and [id number] were at bedside. General: oriented to person, no meningeal signs, no focal motor deficits, CN's II-XI intact bilaterally and deep tendon reflexes 2+ bilaterally Cranial nerves: Yes Equal, round and reactive pupils present, Yes Normal facial strength present, Yes Midline tongue present and Yes Ability to bilaterally rotate head present Cognition (Neuro): abnormal cognition Speech: Other speech findings present (Neuro) Motor exam (neuro): no tremor noted, no asterixis, Motor fasciculations not present, Normal motor muscle tone present throughout and Motor abnormalities not present Deep tendon reflexes (DTR's): Right triceps reflex intensity grade: 1+, Left triceps reflex intensity grade: 1+, Rt Biceps (C5, C6): 1+, Left biceps reflex intensity grade: 1+, Right brachioradialis reflex intensity grade: 1+, Left brachioradialis reflex intensity grade: 1+, Right patellar reflex intensity grade: 1+, Left patellar reflex intensity grade: 1+, Right ankle reflex intensity grade: 1+ and Left ankle reflex intensity grade: 1+ Plantar Reflex Responses: downgoing: right, left and bilateral Pupils: Normal pupillary reactivity/response: bilateral Extrem: General: Yes normal to inspection, Yes normal exam except as noted and Yes no pedal edema Psych: Appearance: grossly normal Mental Status: mental status grossly normal Speech and movement: Normal speech and movement present and Clear speech present Affect: normal affect Attitude: cooperative Thought process: Normal thought process present Results Labs CBC & Chem 7: 04/27/21 05:21 04/27/21 05:21 Labs: Short CBC 04/26/21 04/27/21 Range/Units 16:39 05:21 WBC 13.9 H 7.4 (4.8-10.8) X10*3/uL Hgb 13.9 12.1 (12.0-16.0) g/dl Hct 41.0 37.4 (37-47) % Plt Count 257 197 (160-400) X10*3/uL BMP 04/26/21 04/26/21 04/27/21 16:39 21:56 05:21 Sodium 132 L 134 L 134 L Potassium 5.6 H 4.3 D 4.4 Chloride 100 107 107 Carbon Dioxide 18 L 16 L 18 L BUN 25 H 20 H 17 H Creatinine 1.57 H 1.31 1.17 Calcium 10.4 H 9.3 D 9.5 Cardiac Enzymes 04/26/21 Range/Units 16:39 Total Creatine Kinase 17 L (26-140) U/L Liver Function 04/26/21 04/27/21 Range/Units 16:39 05:21 Total Bilirubin 1.5 H 1.3 H (0.0-1.0) mg/dL Direct Bilirubin 0.6 H 0.5 (0.0-0.5) mg/dL AST 139 H 91 H (5-31) U/L ALT 197 H 143 H (0-31) U/L Alkaline Phosphatase 92 78 (39-117) U/L Albumin 4.2 3.5 (3.5-5.0) g/dL Urine 04/26/21 Range/Units 19:28 Urine Color YELLOW Urine Appearance CLEAR Urine pH 6.0 (5.0-8.0) Ur Specific [place] 1.020 (1.005-1.025) Urine Protein NEG (NEG-TRACE) MG/DL Urine Glucose (UA) >=1000 H (NEG) MG/DL Assessment and Plan (1) Alzheimer's disease: Status: Acute consider Risperidone 0.5mg qd prn for agitation (2) Falls: Qualifiers: Encounter type: initial encounter Qualified Code(s): W19.XXXA - Unspecified fall, initial encounter Status: Acute needs walker time study technologist and supervision. (3) Compression fracture of T12 vertebra: Status: Acute Gabapentin 100mg tid for back pain. Assess for vertebroplasty Procedures Date of Service Date of Service: 04/27/21
--- NOTE | 2021-04-27 13:15 | MHC.SL.SWA ---
Speech Pathologist Impression: Risk of Aspiration Oral Phase Dysphagia Dysphasia Diet Status: Downgrade Liquid Consistency and Strategies for Safe Swallow: Liquid Intake Recommendation: Thin Liquid Intake Strategies: Small Sips Solid Food Consistency: Dietary Recommendations: Grnd/Mech Altered (NDD2) Additional Modifications to Solid Foods: Recommend ground/mech altered (NDD2) solids due to moderate oral phase dysphagia. Recommend food to be moistened with sauce/gravy when possible. Recommend avoid tough/sticky foods. Patient must have dentures in while eating. Oral Medication Intake: Whole with Liquid Compensatory Strategies and Precautions to be Taken for Safe Swallow: Sitting Upright (90 deg) Double Swallow Small Bites and Sips Alternate Liquids/Solids Rate of Ingestion Change Oral Check Avoid Specific Foods Supervision While Eating and Drinking for Safe Swallow: Total Assistance Foods to Avoid: Tough/sticky foods Swallowing Recommended Treatments: Compens. Strategy Educat. Recommendation for Speech: Inpatient Speech Therapy Comment: MANAGER BASKET[employer] to follow up tomorrow morning to ensure tolerance. Ramp Flight Attendant Clinican/Clinical Fellow: No Supervisory Statement: I have reviewed and agree with the student/clinical fellow's documentation: N/A Speech Language Pathologist: Yashira Robert M.A., CCC-MANAGER BASKETBALL
--- NOTE | 2021-04-27 13:48 | HO.PM.IMPN ---
Subjective Subjective Date of Service: 04/27/21 Interval History: The patient was seen and evaluated this morning Laying in bed, looks comfortable overall Denies any fever, chills or shortness of breath No reported other overnight events. Systemic review: No fever, chills or weakness No chest pain, palpitation No shortness of breath or coughing No abdominal pain, nausea or vomiting No urinary symptoms No any rash or wounds Reporting some back pain Physical Exam Vital Signs: Vital Signs: Last Vital Signs Temp 97.6 F 04/27/21 11:04 Pulse 67 04/27/21 11:04 Resp 18 04/27/21 11:04 BP 149/67 H 04/27/21 11:04 Pulse Ox 95 04/27/21 11:04 Body Mass Index 0.1 Const: Other: Constitutional : Alert, oriented, not in distress Neck : Normal inspection, Supple Cardiovascular : RRR, S1 S2, no lower extremity edema Respiratory : Good bilateral air entry, no crackles, wheezes or rhonchi Gastrointestinal: soft, lax, Normal bowel sounds, Non tender Skin : Warm/Dry Neurological : Alert & oriented x2, No focal deficit , Moves all extremities equally; sensations equal bilaterally Objective Data Current Medications Generic Name Dose Route Start Last Admin Trade Name Freq PRN Reason Stop Dose Admin Atorvastatin Calcium 10 mg 04/27/21 09:00 04/27/21 09:26 Atorvastatin Calcium 10 Mg Tablet PO 10 mg DAILY BELEM Administration Heparin Sodium (Porcine) 5,000 unit 04/26/21 20:30 04/27/21 09:26 Heparin Sodium,Porcine 5,000 Unit/Ml Vial SUBCUT 5,000 unit Q12H BELEM Administration Sodium Chloride 1,000 mls @ 50 mls/hr 04/26/21 20:45 04/26/21 21:08 Ns IVCONT 50 mls/hr .Q20H BELEM Administration Lidocaine HCl 1 appl 04/27/21 09:00 04/27/21 09:36 Lidocaine 4 % Cream Kit TOPICAL 1 appl DAILY BELEM Administration Protocol Oxycodone HCl 5 mg 04/26/21 20:38 Oxycodone Hcl Immed Release 5 Mg Tablet PO Q6H PRN Breakthrough Pain Pantoprazole Sodium 40 mg 04/27/21 06:30 04/27/21 05:24 Pantoprazole Sodium 40 Mg/10 Ml Vial IVPUSH 40 mg DAILY@0630 BELEM Administration Quetiapine Fumarate 25 mg 07/06/21 09:00 04/27/21 09:26 Quetiapine Fumarate 25 Mg Tablet PO 25 mg DAILY BELEM Administration Senna 17.2 mg 04/26/21 20:24 Sennosides 8.6 Mg Tablet PO BEDTIME PRN Constipation Sodium Chloride 3 ml 04/27/21 00:00 04/27/21 09:26 0.9 % Sodium Chloride Flush 3 Ml Syringe IVFLUSH Not Given QSHIFT [facility] Labs CBC & Chem 7: 04/27/21 05:21 04/27/21 05:21 Labs: Laboratory Results - last 24 hr 04/26/21 04/26/21 04/26/21 16:39 16:39 16:39 WBC 13.9 H RBC 5.05 Hgb 13.9 Hct 41.0 MCV 81.2 MCH 27.5 MCHC 33.9 RDW 14.3 Plt Count 257 MPV 12.5 H Immature Gran % (Auto) 0.6 H Neut % (Auto) 88.3 H Lymph % (Auto) 6.2 L [place] % (Auto) 4.5 Eos % (Auto) 0.1 Baso % (Auto) 0.3 Lymph # (Auto) 0.9 L [place] # (Auto) 0.6 Eos # (Auto) 0.0 Baso # (Auto) 0.0 Abs Immat Gran (auto) 0.09 H Absolute Neuts (auto) 12.3 H Absolute Nucleated RBC 0.000 Nucleated RBC % (auto) 0.0 PT 13.1 H INR 1.2 H APTT 31.2 Sodium 132 L Potassium 5.6 H Chloride 100 Carbon Dioxide 18 L Anion Gap 20 BUN 25 H Creatinine 1.57 H Estim Creat Clear Calc 25.0 Estimated GFR 31 Random Glucose 105 Calcium 10.4 H Magnesium Total Bilirubin Direct Bilirubin AST ALT Alkaline Phosphatase Total Creatine Kinase Troponin I High Sens Total Protein Albumin Vitamin B12 Folate TSH Urine Color Urine Appearance Urine pH Ur Specific [place] Urine Protein Urine Glucose (UA) Urine Ketones Urine Blood Urine Nitrite Ur Leukocyte Esterase Urine RBC Urine WBC Ur Squamous Epith Cells Urine Bacteria Hyaline Casts Urine Mucus COVID-19 (GIANNI) COVID-19 Clin Com 04/26/21 04/26/21 04/26/21 16:39 16:39 19:15 WBC RBC Hgb Hct MCV MCH MCHC RDW Plt Count MPV Immature Gran % (Auto) Neut % (Auto) Lymph % (Auto) [place] % (Auto) Eos % (Auto) Baso % (Auto) Lymph # (Auto) [place] # (Auto) Eos # (Auto) Baso # (Auto) Abs Immat Gran (auto) Absolute Neuts (auto) Absolute Nucleated RBC Nucleated RBC % (auto) PT INR APTT Sodium Potassium Chloride Carbon Dioxide Anion Gap BUN Creatinine Estim Creat Clear Calc Estimated GFR Random Glucose Calcium Magnesium 2.4 Total Bilirubin 1.5 H Direct Bilirubin 0.6 H AST 139 H ALT 197 H Alkaline Phosphatase 92 Total Creatine Kinase 17 L Troponin I High Sens 3.9 Total Protein 8.2 H Albumin 4.2 Vitamin B12 Folate TSH Urine Color Urine Appearance Urine pH Ur Specific [place] Urine Protein Urine Glucose (UA) Urine Ketones Urine Blood Urine Nitrite Ur Leukocyte Esterase Urine RBC Urine WBC Ur Squamous Epith Cells Urine Bacteria Hyaline Casts Urine Mucus COVID-19 (GIANNI) Negative COVID-19 Clin Com See Note 04/26/21 04/26/21 04/26/21 19:28 21:56 21:56 WBC RBC Hgb Hct MCV MCH MCHC RDW Plt Count MPV Immature Gran % (Auto) Neut % (Auto) Lymph % (Auto) [place] % (Auto) Eos % (Auto) Baso % (Auto) Lymph # (Auto) [place] # (Auto) Eos # (Auto) Baso # (Auto) Abs Immat Gran (auto) Absolute Neuts (auto) Absolute Nucleated RBC Nucleated RBC % (auto) PT INR APTT Sodium 134 L Potassium 4.3 D Chloride 107 Carbon Dioxide 16 L Anion Gap 15 BUN 20 H Creatinine 1.31 Estim Creat Clear Calc 28.0 Estimated GFR 39 Random Glucose 77 Calcium 9.3 D Magnesium Total Bilirubin Direct Bilirubin AST ALT Alkaline Phosphatase Total Creatine Kinase Troponin I High Sens 5.3 Total Protein Albumin Vitamin B12 Folate TSH Urine Color YELLOW Urine Appearance CLEAR Urine pH 6.0 Ur Specific [place] 1.020 Urine Protein NEG Urine Glucose (UA) >=1000 H Urine Ketones 15 Urine Blood NEG Urine Nitrite NEG Ur Leukocyte Esterase NEG Urine RBC 0-2 Urine WBC 0-2 Ur Squamous Epith Cells NONE Urine Bacteria TRACE Hyaline Casts 5-9 Urine Mucus TRACE COVID-19 (GIANNI) COVID-19 Clin Com 04/27/21 04/27/21 04/27/21 05:21 05:21 05:21 WBC 7.4 RBC 4.50 Hgb 12.1 Hct 37.4 MCV 83.1 MCH 26.9 L MCHC 32.4 RDW 14.4 Plt Count 197 MPV 12.9 H Immature Gran % (Auto) 0.4 Neut % (Auto) 70.4 Lymph % (Auto) 18.5 L [place] % (Auto) 9.5 Eos % (Auto) 0.7 Baso % (Auto) 0.5 Lymph # (Auto) 1.4 [place] # (Auto) 0.7 Eos # (Auto) 0.1 Baso # (Auto) 0.0 Abs Immat Gran (auto) 0.03 Absolute Neuts (auto) 5.2 Absolute Nucleated RBC 0.000 Nucleated RBC % (auto) 0.0 PT INR APTT Sodium Potassium Chloride Carbon Dioxide Anion Gap BUN Creatinine Estim Creat Clear Calc Estimated GFR Random Glucose Calcium Magnesium Total Bilirubin Direct Bilirubin AST ALT Alkaline Phosphatase Total Creatine Kinase Troponin I High Sens Total Protein Albumin Vitamin B12 484 Folate 3.6 L TSH 0.37 Urine Color Urine Appearance Urine pH Ur Specific [place] Urine Protein Urine Glucose (UA) Urine Ketones Urine Blood Urine Nitrite Ur Leukocyte Esterase Urine RBC Urine WBC Ur Squamous Epith Cells Urine Bacteria Hyaline Casts Urine Mucus COVID-19 (GIANNI) COVID-19 Clin Com 04/27/21 04/27/21 07 05:21 05:21 05:21 WBC RBC Hgb Hct MCV MCH MCHC RDW Plt Count MPV Immature Gran % (Auto) Neut % (Auto) Lymph % (Auto) [place] % (Auto) Eos % (Auto) Baso % (Auto) Lymph # (Auto) [place] # (Auto) Eos # (Auto) Baso # (Auto) Abs Immat Gran (auto) Absolute Neuts (auto) Absolute Nucleated RBC Nucleated RBC % (auto) PT INR APTT Sodium 134 L Potassium 4.4 Chloride 107 Carbon Dioxide 18 L Anion Gap 13 BUN 17 H Creatinine 1.17 Estim Creat Clear Calc 31.3 Estimated GFR 44 Random Glucose 83 Calcium 9.5 Magnesium 2.1 Total Bilirubin 1.3 H Direct Bilirubin 0.5 AST 91 H ALT 143 H Alkaline Phosphatase 78 Total Creatine Kinase Troponin I High Sens Total Protein 6.7 Albumin 3.5 Vitamin B12 Folate TSH Urine Color Urine Appearance Urine pH Ur Specific [place] Urine Protein Urine Glucose (UA) Urine Ketones Urine Blood Urine Nitrite Ur Leukocyte Esterase Urine RBC Urine WBC Ur Squamous Epith Cells Urine Bacteria Hyaline Casts Urine Mucus COVID-19 (GIANNI) COVID-19 Clin Com Quality Stroke Does the patient have a stroke diagnosis?: No VTE Prior VTE?: No VTE Risk Level:: Medical - moderate - high VTE Device Contraindication: N/A - Device Ordered VTE Drug Contraindication: N/A - Med Ordered Assessment and Plan (1) Acute kidney failure: Status: Acute Assessment and Plan: 85-year-old female with a past medical history of hypertension, hyperlipidemia, question early dementia, recurrent UTI, history of encephalopathy presented to the hospital with a chief complaint of recurrent falls; recently finished a course of Bactrim for UTI; noted to have T12 compression fracture, LILY, hyperkalemia, transaminitis. Recurrent falls secondary to physical deconditioning CT head showed no acute findings. 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 Hypertension Start amlodipine Transaminitis pending right upper quadrant ultrasound and acute hepatitis panel. Trend liver panel. poor intake: Multifactorial. Nutrition consult. Patient/family denies any difficulty swallowing. DVT prophylaxis: Subcu heparin twice daily Code status: Full code he
[2021-04-27] MEDS: amLODIPine Besylate 10 MG TABLET PO (15:18)
[2021-04-27] MEDS: 0.9 % Sodium Chloride 1,000 ML 50 ML IVCONT (16:38)
[2021-04-27] MEDS: Gabapentin 100 MG CAPSULE PO (21:20)
[2021-04-27] MEDS: 0.9 % Sodium Chloride Flush 3 ML SYRINGE IVFLUSH ×2 (21:29)
[2021-04-28 04:00] VITALS: BP 156/86; PULSE 75; RESP 18; TEMP 36.1; O2SAT 96
[2021-04-28] MEDS: Pantoprazole Sodium 40 MG/10 ML VIAL IVPUSH (05:39)
[2021-04-28] MEDS: 0.9 % Sodium Chloride 1,000 ML 50 ML IVCONT (05:39)
[2021-04-28 07:10] VITALS: BP 158/67; PULSE 71; RESP 18; TEMP 36.1; O2SAT 96
[2021-04-28 08:00] VITALS: BP 158/67; PULSE 71
[2021-04-28] MEDS: amLODIPine Besylate 10 MG TABLET PO (08:00)
[2021-04-28] MEDS: Heparin Sodium,Porcine 5,000 UNIT/ML VIAL 5000 UNIT SUBCUT ×2 (08:00→20:26)
[2021-04-28] MEDS: QUEtiapine Fumarate 25 MG TABLET PO (08:01)
[2021-04-28] MEDS: 0.9 % Sodium Chloride Flush 3 ML SYRINGE IVFLUSH ×2 (08:01→20:26)
[2021-04-28] MEDS: Gabapentin 100 MG CAPSULE PO ×3 (08:01→20:26)
[2021-04-28] MEDS: Atorvastatin Calcium 10 MG TABLET PO (08:01)
[2021-04-28] MEDS: Folic Acid 1 MG TABLET PO (08:01)
[2021-04-28 10:07] LABS: Hemoglobin 13.1 g/dl (12.0-16.0); Mean Corpuscular HGB Conc 32.8 g/dl (31.0-35.0); Mean Corpuscular Hemoglobin 27.5 pg (27.0-33.0); Mean Corpuscular Volume 83.9 fL (80-98); Mean Platelet Volume 11.9 fL (9.4-12.3); Platelet Count 169 X10*3/uL (160-400); Red Blood Count 4.77 X10*6/uL (4.20-5.50); Red Cell Distribution Width 14.3 % (11.0-16.0); White Blood Count 7.7 X10*3/uL (4.8-10.8)
[2021-04-28 10:17] LABS: Estimated Average Glucose 114 mg/dL; Hemoglobin A1c % 5.6 %
[2021-04-28 10:48] LABS: Anion Gap 15 (12-20); Blood Urea Nitrogen 11 mg/dL (9-16); Calcium 9.3 mg/dL (8.4-10.2); Carbon Dioxide 16 mmol/L (22-29); Chloride 107 mmol/L (96-108); Estimated Glomerular Filt Rate 52; Glucose Random 79 mg/dL (60-115); Potassium 4.3 mmol/L (3.3-5.1); Sodium 134 mmol/L (135-145)
[2021-04-28 11:10] VITALS: BP 138/63; PULSE 80; RESP 18; TEMP 36.2; O2SAT 94
--- NOTE | 2021-04-28 13:28 | MHC.SLORD ---
Speech Language Pathology Order Status: PARCEL WRAPPER attempted to see patient for PO trials. However, patient was sleeping and reportedly has been very lethargic. Not appropriate for PO trials at this time. Family was present and reported concerns RE: patient's loss of appetite. They report that patient has not been eating. Per documentation, patient is followed by RD, who recommends literalized diet due to advanced age and limited PO intake. Patient may benefit from upgrade to regular solids and self selecting of softer foods and avoiding tough foods. Notified MD of family concerns via [place] message. PARCEL WRAPPER will continue to follow.
--- NOTE | 2021-04-28 13:33 | HO.PM.IMPN ---
Subjective Subjective Date of Service: 04/28/21 Interval History: lethargic Cardiovascular Cardiovascular: Reports no additional cardiovascular complaints Respiratory Respiratory: Reports no additional respiratory complaints Physical Exam Vital Signs: Vital Signs: Last Vital Signs Temp 97.2 F 04/28/21 11:10 Pulse 80 04/28/21 11:10 Resp 18 04/28/21 11:10 BP 138/63 04/28/21 11:10 Pulse Ox 94 04/28/21 11:10 Body Mass Index 0.1 General: sleeping comfortably, no acute distress Resp: CTA bilateral CVS: S1,S2,RRR GI: soft, non tender, non distended Neuro: motor grossly intact Psych: mipaired insight Objective Data Current Medications Generic Name Dose Route Start Last Admin Trade Name Freq PRN Reason Stop Dose Admin Amlodipine Besylate 10 mg 04/27/21 14:10 04/28/21 08:00 Amlodipine Besylate 10 Mg Tablet PO 10 mg DAILY BELEM Administration Protocol Atorvastatin Calcium 10 mg 04/27/21 09:00 04/28/21 08:01 Atorvastatin Calcium 10 Mg Tablet PO 10 mg DAILY BELEM Administration Folic Acid 1 mg 04/28/21 09:00 04/28/21 08:01 Folic Acid 1 Mg Tablet PO 1 mg DAILY BELEM Administration Gabapentin 100 mg 04/27/21 21:00 04/28/21 08:01 Gabapentin 100 Mg Capsule PO 100 mg TID BELEM Administration Heparin Sodium (Porcine) 5,000 unit 04/26/21 20:30 04/28/21 08:00 Heparin Sodium,Porcine 5,000 Unit/Ml Vial SUBCUT 5,000 unit Q12H BELEM Administration Sodium Chloride 1,000 mls @ 50 mls/hr 04/26/21 20:45 04/28/21 13:25 Ns IVCONT Not Given .Q20H BELEM Lidocaine HCl 1 appl 04/27/21 09:00 04/28/21 08:06 Lidocaine 4 % Cream Kit TOPICAL Not Given DAILY [facility] Protocol Oxycodone HCl 5 mg 04/26/21 20:38 Oxycodone Hcl Immed Release 5 Mg Tablet PO Q6H PRN Breakthrough Pain Pantoprazole Sodium 40 mg 04/27/21 06:30 04/28/21 05:39 Pantoprazole Sodium 40 Mg/10 Ml Vial IVPUSH 40 mg DAILY@0630 BELEM Administration Senna 17.2 mg 04/26/21 20:24 Sennosides 8.6 Mg Tablet PO BEDTIME PRN Constipation Sodium Chloride 3 ml 04/27/21 00:00 04/28/21 08:01 0.9 % Sodium Chloride Flush 3 Ml Syringe IVFLUSH 3 ml QSHIFT [facility] Administration Labs CBC & Chem 7: 04/28/21 09:55 04/28/21 09:55 Labs: Laboratory Results - last 24 hr 04/28/21 04/28/21 04/28/21 09:55 09:55 09:55 WBC 7.7 RBC 4.77 Hgb 13.1 Hct 40.0 MCV 83.9 MCH 27.5 MCHC 32.8 RDW 14.3 Plt Count 169 MPV 11.9 Absolute Nucleated RBC 0.000 Nucleated RBC % (auto) 0.0 Sodium 134 L Potassium 4.3 Chloride 107 Carbon Dioxide 16 L Anion Gap 15 BUN 11 Creatinine 1.02 Estim Creat Clear Calc 36.0 Estimated GFR 52 Random Glucose 79 Estimat Average Glucose 114 Hemoglobin A1c % 5.6 Calcium 9.3 Microbiology Microbiology Results: Microbiology 04/26/21 16:38 Blood Culture - Preliminary Blood - Venous No growth after 24 hours. 04/26/21 16:39 Blood Culture - Preliminary Blood - Venous No growth after 24 hours. Quality Stroke Does the patient have a stroke diagnosis?: No VTE Prior VTE?: No VTE Risk Level:: Medical - moderate - high VTE Device Contraindication: N/A - Device Ordered VTE Drug Contraindication: N/A - Med Ordered Assessment and Plan (1) Acute kidney failure: Status: Acute Assessment and Plan: 85-year-old female with a past medical history of hypertension, hyperlipidemia, question early dementia, recurrent UTI, history of encephalopathy presented to the hospital with a chief complaint of recurrent falls; recently finished a course of Bactrim for UTI; noted to have T12 compression fracture, LILY, hyperkalemia, transaminitis. Recurrent falls secondary to physical deconditioning CT head showed no acute findings. has low folate level, to give supplement Fall precautions PT/OT moderate to severe cervical spine spondylosis/T12 compression fracture: MRI to check acuity Pain control Recommended outpatient follow-up with Neurosurgery Clinic possible kyphoplasty LILY resolved Hypertension amlodipine Transaminitis possible NAFLD DVT prophylaxis: Subcu heparin twice daily Code status: Full code he
[2021-04-28 15:26] VITALS: BP 140/76; PULSE 76; RESP 15; TEMP 36.4; O2SAT 97
[2021-04-28 19:17] VITALS: BP 144/68; PULSE 94; RESP 18; TEMP 36.6; O2SAT 96
[2021-04-29] VITALS (9 sets, daily range): BP systolic 129–186; BP diastolic 60–97; PULSE 71–96; RESP 18–20; TEMP 36–36.9; O2SAT 94–97
[2021-04-29] MEDS: 0.9 % Sodium Chloride 1,000 ML 50 ML IVCONT (02:35)
[2021-04-29] MEDS: Pantoprazole Sodium 40 MG/10 ML VIAL IVPUSH (06:35)
[2021-04-29 06:41] LABS: Hematocrit 44.5 % (37-47); Hemoglobin 14.7 g/dl (12.0-16.0); Mean Corpuscular Hemoglobin 27.5 pg (27.0-33.0); Mean Corpuscular Volume 83.3 fL (80-98); Mean Platelet Volume 12.2 fL (9.4-12.3); Platelet Count 155 X10*3/uL (160-400); Red Blood Count 5.34 X10*6/uL (4.20-5.50); Red Cell Distribution Width 14.3 % (11.0-16.0); White Blood Count 9.6 X10*3/uL (4.8-10.8)
[2021-04-29 06:54] LABS: Ammonia 24 umol/L (13-55)
[2021-04-29 07:07] LABS: Alanine Aminotransferase 107 U/L (0-31); Albumin Level 3.7 g/dL (3.5-5.0); Alkaline Phosphatase 84 U/L (39-117); Anion Gap 13 (12-20); Aspartate Amino Transferase 65 U/L (5-31); Bilirubin Direct 0.6 mg/dL (0.0-0.5); Bilirubin Total 1.4 mg/dL (0.0-1.0); Blood Urea Nitrogen 14 mg/dL (9-16); Calcium 9.7 mg/dL (8.4-10.2); Carbon Dioxide 20 mmol/L (22-29); Chloride 105 mmol/L (96-108); Cholesterol 133 mg/dL; Estimated Glomerular Filt Rate 50; Glucose Fasting 96 mg/dL (60-99); HDL Cholesterol 34 mg/dL; LDL Cholesterol Calculated 82 mg/dl; Potassium 4.1 mmol/L (3.3-5.1); Sodium 134 mmol/L (135-145); Total Protein 7.6 g/dL (6.5-8.0); Triglycerides 89 mg/dL
--- NOTE | 2021-04-29 08:05 | P.CDIC_ITS ---
CDI Concurrent Query Service Date: 04/29/21 Documentation Clarification: Please clarify if you are treating a proba ble/suspected/likely or confirmed: Folate Deficiency Anemia Folate Deficiency Anemia (drug induced, dietary, other-please specify) Other cause of low folate, please specify PLEASE DO NOT DELETE/MODIFY EXISTING CONTENT Additional information is needed in order to code to the highest accuracy and appropriate Severity of Illness (SOI). Please clarify the information noted below in your progress notes and discharge summary. Risk Factors/Clinical Indicators/Treatments Folate 3.6 Per MD progress note 04/28/21: low folate level, to give supplement Treated with Folic Acid 1 mg po daily CDS: Bianca Parry RN Contact Number: [phone] Please Review the information above and exercise your independent professional judgment in responding to the query. If you concur, pleas document in the PROGRESS NOTES and DISCHARGE SUMMARY. If you do not agree with the query, please document in the query above. THIS QUERY IS PART OF THE PERMANENT MEDICAL RECORD
[2021-04-29 08:20] LABS: Estimated Average Glucose 111 mg/dL; Hemoglobin A1c % 5.5 %
[2021-04-29] MEDS: Gabapentin 100 MG CAPSULE PO ×3 (09:08→20:21)
[2021-04-29] MEDS: amLODIPine Besylate 10 MG TABLET PO (09:08)
[2021-04-29] MEDS: Folic Acid 1 MG TABLET PO (09:08)
[2021-04-29] MEDS: Atorvastatin Calcium 10 MG TABLET PO (09:08)
[2021-04-29] MEDS: Heparin Sodium,Porcine 5,000 UNIT/ML VIAL 5000 UNIT SUBCUT ×2 (09:08→20:21)
[2021-04-29] MEDS: 0.9 % Sodium Chloride Flush 3 ML SYRINGE IVFLUSH (09:09)
[2021-04-29] MEDS: Lidocaine 4 % Cream KIT 1 APPL TOPICAL (09:09)
[2021-04-29 11:31] LABS: HBc Num1 0.07 S/CO (0.00-0.79); HBsAGNum1 0.17 S/CO (0.00-0.99); Hepatitis B Core Antibody Nonreactive (Nonreactive); Hepatitis B Surface Antigen Negative (Negative); ~HepC Num1 0.05 S/CO (0.00-0.79); ~Hepatitis C Antibody Nonreactive (Nonreactive)
--- NOTE | 2021-04-29 11:44 | HO.PM.IMPN ---
Subjective Subjective Date of Service: 04/29/21 Interval History: pain Cardiovascular Cardiovascular: Reports no additional cardiovascular complaints Respiratory Respiratory: Reports no additional respiratory complaints Physical Exam Vital Signs: Vital Signs: Last Vital Signs Temp 97 F 04/29/21 11:12 Pulse 93 04/29/21 11:12 Resp 19 04/29/21 11:12 BP 129/81 04/29/21 11:12 Pulse Ox 95 04/29/21 11:12 Body Mass Index 0.1 General: in pain Resp: CTA bilateral CVS: S1,S2,RRR GI: soft, non tender, non distended Neuro: motor grossly intact Psych: mipaired insight Objective Data Current Medications Generic Name Dose Route Start Last Admin Trade Name Freq PRN Reason Stop Dose Admin Amlodipine Besylate 10 mg 04/27/21 14:10 04/29/21 09:08 Amlodipine Besylate 10 Mg Tablet PO 10 mg DAILY BELEM Administration Protocol Atorvastatin Calcium 10 mg 04/27/21 09:00 04/29/21 09:08 Atorvastatin Calcium 10 Mg Tablet PO 10 mg DAILY BELEM Administration Folic Acid 1 mg 04/28/21 09:00 04/29/21 09:08 Folic Acid 1 Mg Tablet PO 1 mg DAILY BELEM Administration Gabapentin 100 mg 04/27/21 21:00 04/29/21 09:08 Gabapentin 100 Mg Capsule PO 100 mg TID BELEM Administration Heparin Sodium (Porcine) 5,000 unit 04/26/21 20:30 04/29/21 09:08 Heparin Sodium,Porcine 5,000 Unit/Ml Vial SUBCUT 5,000 unit Q12H BELEM Administration Sodium Chloride 1,000 mls @ 50 mls/hr 04/26/21 20:45 04/29/21 09:11 Ns IVCONT Not Given .Q20H BELEM Lidocaine HCl 1 appl 04/27/21 09:00 04/29/21 09:09 Lidocaine 4 % Cream Kit TOPICAL 1 appl DAILY BELEM Administration Protocol Oxycodone HCl 5 mg 04/26/21 20:38 Oxycodone Hcl Immed Release 5 Mg Tablet PO Q6H PRN Breakthrough Pain Pantoprazole Sodium 40 mg 04/27/21 06:30 04/29/21 06:35 Pantoprazole Sodium 40 Mg/10 Ml Vial IVPUSH 40 mg DAILY@0630 BELEM Administration Senna 17.2 mg 04/26/21 20:24 Sennosides 8.6 Mg Tablet PO BEDTIME PRN Constipation Sodium Chloride 3 ml 04/27/21 00:00 04/29/21 09:09 0.9 % Sodium Chloride Flush 3 Ml Syringe IVFLUSH 3 ml QSHIFT [facility] Administration Labs CBC & Chem 7: 04/29/21 06:29 04/29/21 06:29 Labs: Laboratory Results - last 24 hr 04/29/21 04/29/21 04/29/21 06:29 06:29 06:29 WBC 9.6 RBC 5.34 Hgb 14.7 Hct 44.5 MCV 83.3 MCH 27.5 MCHC 33.0 RDW 14.3 Plt Count 155 L MPV 12.2 Absolute Nucleated RBC 0.000 Nucleated RBC % (auto) 0.0 Sodium 134 L Potassium 4.1 Chloride 105 Carbon Dioxide 20 L Anion Gap 13 BUN 14 Creatinine 1.04 Estim Creat Clear Calc 35.2 Estimated GFR 50 Fasting Glucose 96 Estimat Average Glucose 111 Hemoglobin A1c % 5.5 Calcium 9.7 Total Bilirubin 1.4 H Direct Bilirubin 0.6 H AST 65 H ALT 107 H Alkaline Phosphatase 84 Ammonia Total Protein 7.6 Albumin 3.7 Triglycerides 89 Cholesterol 133 LDL Cholesterol, Calc 82 HDL Cholesterol 34 04/29/21 06:29 WBC RBC Hgb Hct MCV MCH MCHC RDW Plt Count MPV Absolute Nucleated RBC Nucleated RBC % (auto) Sodium Potassium Chloride Carbon Dioxide Anion Gap BUN Creatinine Estim Creat Clear Calc Estimated GFR Fasting Glucose Estimat Average Glucose Hemoglobin A1c % Calcium Total Bilirubin Direct Bilirubin AST ALT Alkaline Phosphatase Ammonia 24 Total Protein Albumin Triglycerides Cholesterol LDL Cholesterol, Calc HDL Cholesterol Microbiology Microbiology Results: Microbiology 04/26/21 16:38 Blood Culture - Preliminary Blood - Venous No growth after 48 hours. 04/26/21 16:39 Blood Culture - Preliminary Blood - Venous No growth after 48 hours. Quality Stroke Does the patient have a stroke diagnosis?: No VTE Prior VTE?: No VTE Risk Level:: Medical - moderate - high VTE Device Contraindication: N/A - Device Ordered VTE Drug Contraindication: N/A - Med Ordered Assessment and Plan (1) Acute kidney failure: Status: Acute Assessment and Plan: 85-year-old female with a past medical history of hypertension, hyperlipidemia, question early dementia, recurrent UTI, history of encephalopathy presented to the hospital with a chief complaint of recurrent falls; recently finished a course of Bactrim for UTI; noted to have T12 compression fracture, LILY, hyperkalemia, transaminitis. Recurrent falls secondary to physical deconditioning CT head showed no acute findings. folate defeciency without anemia - replace Fall precautions PT/OT moderate to severe cervical spine spondylosis/T12 compression fracture: MRI - t12 fracture is acute Pain control possible kyphoplasty early next week if unable to participate with PT LILY resolved Hypertension amlodipine Transaminitis possible NAFLD DVT prophylaxis: Subcu heparin twice daily Code status: Full code
[2021-04-29 11:55] LABS: ~HepC Num1 0.04 S/CO (0.00-0.79); ~Hepatitis C Antibody Nonreactive (Nonreactive)
[2021-04-29] MEDS: Dextrose 5 % and 0.45 % NaCl 1,000 ML 50 ML IVCONT (23:43)
[2021-04-30] VITALS (8 sets, daily range): BP systolic 120–179; BP diastolic 60–83; PULSE 72–88; RESP 15–18; TEMP 36.2–37.7; O2SAT 93–96
[2021-04-30] MEDS: Pantoprazole Sodium 40 MG/10 ML VIAL IVPUSH (05:51)
[2021-04-30 08:45] LABS: HBS Num1 0.08 mIU/mL (0-7.99); Hepatitis A Antibody IgM 0.17 Index (0-0.79); ~Hepatitis A Antibody IgM Nonreactive (Nonreactive); ~Hepatitis B Surface Antibody NONREACTIVE (Nonreactive)
[2021-04-30] MEDS: 0.9 % Sodium Chloride Flush 3 ML SYRINGE IVFLUSH ×2 (08:53→20:12)
[2021-04-30] MEDS: amLODIPine Besylate 10 MG TABLET PO (08:59)
[2021-04-30] MEDS: Heparin Sodium,Porcine 5,000 UNIT/ML VIAL 5000 UNIT SUBCUT ×2 (08:59→20:12)
[2021-04-30] MEDS: Megestrol Acetate 400 MG/10 ML ORAL.SUSP PO (08:59)
[2021-04-30] MEDS: Atorvastatin Calcium 10 MG TABLET PO (09:00)
[2021-04-30] MEDS: Folic Acid 1 MG TABLET PO (09:00)
[2021-04-30] MEDS: Gabapentin 100 MG CAPSULE PO ×3 (09:00→20:12)
[2021-04-30] MEDS: Lidocaine 4 % Cream KIT 1 APPL TOPICAL (09:22)
--- NOTE | 2021-04-30 11:46 | P.PNIM_ITS ---
Subjective Subjective Date of Service: 04/30/21 Interval History: back pain Cardiovascular Cardiovascular: Reports no additional cardiovascular complaints Respiratory Respiratory: Reports no additional respiratory complaints Physical Exam Vital Signs: Vital Signs: Last Vital Signs Temp 97.1 F 04/30/21 11:02 Pulse 74 04/30/21 11:02 Resp 16 04/30/21 11:02 BP 140/65 H 04/30/21 11:02 Pulse Ox 94 04/30/21 11:02 Body Mass Index 0.1 General: in pain Resp: CTA bilateral CVS: S1,S2,RRR GI: soft, non tender, non distended Neuro: motor grossly intact Psych: mipaired insight Objective Data Current Medications Generic Name Dose Route Start Last Admin Trade Name Freq PRN Reason Stop Dose Admin Amlodipine Besylate 10 mg 04/27/21 14:10 04/30/21 08:59 Amlodipine Besylate 10 Mg Tablet PO 10 mg DAILY BELEM Administration Protocol Atorvastatin Calcium 10 mg 04/27/21 09:00 04/30/21 09:00 Atorvastatin Calcium 10 Mg Tablet PO 10 mg DAILY BELEM Administration Folic Acid 1 mg 04/28/21 09:00 04/30/21 09:00 Folic Acid 1 Mg Tablet PO 1 mg DAILY BELEM Administration Gabapentin 100 mg 04/27/21 21:00 04/30/21 09:00 Gabapentin 100 Mg Capsule PO 100 mg TID BELEM Administration Heparin Sodium (Porcine) 5,000 unit 04/26/21 20:30 04/30/21 08:59 Heparin Sodium,Porcine 5,000 Unit/Ml Vial SUBCUT 5,000 unit Q12H BELEM Administration Dextrose/Sodium Chloride 1,000 mls @ 50 mls/hr 04/29/21 23:00 04/29/21 23:43 D51/2ns IVCONT 50 mls/hr .Q20H BELEM Administration Lidocaine HCl 1 appl 04/27/21 09:00 04/30/21 09:22 Lidocaine 4 % Cream Kit TOPICAL 1 appl DAILY BELEM Administration Protocol Megestrol Acetate 400 mg 04/30/21 09:00 04/30/21 08:59 Megestrol Acetate 400 Mg/10 Ml Oral.Susp PO 400 mg DAILY BELEM Administration Oxycodone HCl 5 mg 04/26/21 20:38 Oxycodone Hcl Immed Release 5 Mg Tablet PO Q6H PRN Breakthrough Pain Senna 17.2 mg 04/26/21 20:24 Sennosides 8.6 Mg Tablet PO BEDTIME PRN Constipation Sodium Chloride 3 ml 04/27/21 00:00 04/30/21 08:53 0.9 % Sodium Chloride Flush 3 Ml Syringe IVFLUSH 3 ml QSHIFT [facility] Administration Labs CBC & Chem 7: 04/29/21 06:29 04/29/21 06:29 Labs: Laboratory Results - last 24 hr 04/27/21 04/29/21 05:21 07:51 Hepatitis A IgM Ab Nonreactive Hep Bs Antigen Negative Hep Bs Antibody NONREACTIVE Hep B Core Total Ab Nonreactive Hepatitis C Ab (EIA) Nonreactive Nonreactive Quality Stroke Does the patient have a stroke diagnosis?: No VTE Prior VTE?: No VTE Risk Level:: Medical - moderate - high VTE Device Contraindication: N/A - Device Ordered VTE Drug Contraindication: N/A - Med Ordered Assessment and Plan (1) Acute kidney failure: Status: Acute Assessment and Plan: 85-year-old female with a past medical history of hypertension, hyperlipidemia, question early dementia, recurrent UTI, history of encephalopathy presented to the hospital with a chief complaint of recurrent falls; recently finished a course of Bactrim for UTI; noted to have T12 compression fracture, LILY, hyperkalemia, transaminitis. Recurrent falls secondary to physical deconditioning CT head showed no acute findings. folate defeciency without anemia - replace Fall precautions PT/OT moderate to severe cervical spine spondylosis/T12 compression fracture: MRI - t12 fracture is acute Pain control - continues to be in pain possible kyphoplasty early next week if unable to participate with PT moderate protein calorie malnutrition ensure megave LILY resolved Hypertension amlodipine Transaminitis possible NAFLD DVT prophylaxis: Subcu heparin twice daily Code status: Full code
[2021-04-30] MEDS: Dextrose 5 % and 0.45 % NaCl 1,000 ML 50 ML IVCONT (18:26)
[2021-05-01] VITALS (7 sets, daily range): BP systolic 131–161; BP diastolic 63–74; PULSE 77–86; RESP 16–18; TEMP 35.8–37.6; O2SAT 94–96
[2021-05-01] MEDS: Atorvastatin Calcium 10 MG TABLET PO (09:28)
[2021-05-01] MEDS: amLODIPine Besylate 10 MG TABLET PO (09:28)
[2021-05-01] MEDS: Heparin Sodium,Porcine 5,000 UNIT/ML VIAL 5000 UNIT SUBCUT ×2 (09:28→21:02)
[2021-05-01] MEDS: Gabapentin 100 MG CAPSULE PO ×3 (09:28→21:02)
[2021-05-01] MEDS: Megestrol Acetate 400 MG/10 ML ORAL.SUSP PO (09:28)
[2021-05-01] MEDS: Folic Acid 1 MG TABLET PO (09:28)
[2021-05-01] MEDS: 0.9 % Sodium Chloride Flush 3 ML SYRINGE IVFLUSH ×2 (09:29→21:02)
--- NOTE | 2021-05-01 10:33 | P.PNIM_ITS ---
Subjective Subjective Date of Service: 05/01/21 Interval History: back pain Cardiovascular Cardiovascular: Reports no additional cardiovascular complaints Respiratory Respiratory: Reports no additional respiratory complaints Physical Exam Vital Signs: Vital Signs: Last Vital Signs Temp 97.6 F 05/01/21 07:30 Pulse 79 05/01/21 09:28 Resp 18 05/01/21 07:30 BP 161/74 H 05/01/21 09:28 Pulse Ox 96 05/01/21 07:30 Body Mass Index 0.1 General: in pain Resp: CTA bilateral CVS: S1,S2,RRR GI: soft, non tender, non distended Neuro: motor grossly intact Psych: mipaired insight Objective Data Current Medications Generic Name Dose Route Start Last Admin Trade Name Freq PRN Reason Stop Dose Admin Amlodipine Besylate 10 mg 04/27/21 14:10 05/01/21 09:28 Amlodipine Besylate 10 Mg Tablet PO 10 mg DAILY BELEM Administration Protocol Atorvastatin Calcium 10 mg 04/27/21 09:00 05/01/21 09:28 Atorvastatin Calcium 10 Mg Tablet PO 10 mg DAILY BELEM Administration Folic Acid 1 mg 04/28/21 09:00 05/01/21 09:28 Folic Acid 1 Mg Tablet PO 1 mg DAILY BELEM Administration Gabapentin 100 mg 04/27/21 21:00 05/01/21 09:28 Gabapentin 100 Mg Capsule PO 100 mg TID BELEM Administration Heparin Sodium (Porcine) 5,000 unit 04/26/21 20:30 05/01/21 09:28 Heparin Sodium,Porcine 5,000 Unit/Ml Vial SUBCUT 5,000 unit Q12H BELEM Administration Dextrose/Sodium Chloride 1,000 mls @ 50 mls/hr 04/29/21 23:00 04/30/21 18:26 D51/2ns IVCONT 50 mls/hr .Q20H BELEM Administration Lidocaine HCl 1 appl 04/27/21 09:00 04/30/21 09:22 Lidocaine 4 % Cream Kit TOPICAL 1 appl DAILY BELEM Administration Protocol Megestrol Acetate 400 mg 04/30/21 09:00 05/01/21 09:28 Megestrol Acetate 400 Mg/10 Ml Oral.Susp PO 400 mg DAILY BELEM Administration Oxycodone HCl 5 mg 04/26/21 20:38 Oxycodone Hcl Immed Release 5 Mg Tablet PO Q6H PRN Breakthrough Pain Senna 17.2 mg 04/26/21 20:24 Sennosides 8.6 Mg Tablet PO BEDTIME PRN Constipation Sodium Chloride 3 ml 04/27/21 00:00 05/01/21 09:29 0.9 % Sodium Chloride Flush 3 Ml Syringe IVFLUSH 3 ml QSHIFT BELEM Administration Labs CBC & Chem 7: 04/29/21 06:29 04/29/21 06:29 Quality Stroke Does the patient have a stroke diagnosis?: No VTE Prior VTE?: No VTE Risk Level:: Medical - moderate - high VTE Device Contraindication: N/A - Device Ordered VTE Drug Contraindication: N/A - Med Ordered Assessment and Plan (1) Acute kidney failure: Status: Acute Assessment and Plan: 85-year-old female with a past medical history of hypertension, hyperlipidemia, question early dementia, recurrent UTI, history of encephalopathy presented to the hospital with a chief complaint of recurrent falls; recently finished a course of Bactrim for UTI; noted to have T12 compression fracture, LILY, hyperk alemia, transaminitis. Recurrent falls secondary to physical deconditioning CT head showed no acute findings. folate defeciency without anemia - replace Fall precautions PT/OT moderate to severe cervical spine spondylosis/T12 compression fracture: MRI - t12 fracture is acute Pain control - reports pain this morning, not working well with pt, not claiming to be due to pain, but suspect patient may not be able to express properly possible kyphoplasty on monday if continues to be unable to participate with PT hold heparin from monday evening moderate protein calorie malnutrition ensure megace LILY resolved Hypertension amlodipine Transaminitis possible NAFLD DVT prophylaxis: Subcu heparin twice daily Code status: Full code
[2021-05-01] MEDS: Lidocaine 4 % Cream KIT 1 APPL TOPICAL (12:10)
[2021-05-01] MEDS: Dextrose 5 % and 0.45 % NaCl 1,000 ML 50 ML IVCONT (15:11)
[2021-05-02] VITALS (8 sets, daily range): BP systolic 115–159; BP diastolic 53–72; PULSE 63–83; RESP 18–26; TEMP 36–37.2; O2SAT 92–95
[2021-05-02] MEDS: Gabapentin 100 MG CAPSULE PO ×3 (10:11→21:46)
[2021-05-02] MEDS: Dextrose 5 % and 0.45 % NaCl 1,000 ML 50 ML IVCONT (10:11)
[2021-05-02] MEDS: amLODIPine Besylate 10 MG TABLET PO (10:11)
[2021-05-02] MEDS: Atorvastatin Calcium 10 MG TABLET PO (10:11)
[2021-05-02] MEDS: Folic Acid 1 MG TABLET PO (10:11)
[2021-05-02] MEDS: Megestrol Acetate 400 MG/10 ML ORAL.SUSP PO (10:11)
[2021-05-02] MEDS: 0.9 % Sodium Chloride Flush 3 ML SYRINGE IVFLUSH ×2 (10:12→21:46)
[2021-05-02] MEDS: Lidocaine 4 % Cream KIT 1 APPL TOPICAL (10:19)
--- NOTE | 2021-05-02 10:36 | HO.PM.IMPN ---
Subjective Subjective Date of Service: 05/02/21 Interval History: back pain Cardiovascular Cardiovascular: Reports no additional cardiovascular complaints Gastrointestinal Gastrointestinal: Reports no additional gastrointestinal complaints Physical Exam Vital Signs: Vital Signs: Last Vital Signs Temp 96.8 F 05/02/21 08:00 Pulse 70 05/02/21 10:11 Resp 20 05/02/21 08:00 BP 120/61 05/02/21 10:11 Pulse Ox 93 05/02/21 08:00 Body Mass Index 0.1 General: in pain Resp: CTA bilateral CVS: S1,S2,RRR GI: soft, non tender, non distended Neuro: motor grossly intact Psych: impaired insight Objective Data Current Medications Generic Name Dose Route Start Last Admin Trade Name Freq PRN Reason Stop Dose Admin Amlodipine Besylate 10 mg 04/27/21 14:10 05/02/21 10:11 Amlodipine Besylate 10 Mg Tablet PO 10 mg DAILY BELEM Administration Protocol Atorvastatin Calcium 10 mg 04/27/21 09:00 05/02/21 10:11 Atorvastatin Calcium 10 Mg Tablet PO 10 mg DAILY BELEM Administration Folic Acid 1 mg 04/28/21 09:00 05/02/21 10:11 Folic Acid 1 Mg Tablet PO 1 mg DAILY BELEM Administration Gabapentin 100 mg 04/27/21 21:00 05/02/21 10:11 Gabapentin 100 Mg Capsule PO 100 mg TID BELEM Administration Dextrose/Sodium Chloride 1,000 mls @ 50 mls/hr 04/29/21 23:00 05/02/21 10:11 D51/2ns IVCONT 50 mls/hr .Q20H BELEM Administration Lidocaine HCl 1 appl 04/27/21 09:00 05/02/21 10:19 Lidocaine 4 % Cream Kit TOPICAL 1 appl DAILY BELEM Administration Protocol Megestrol Acetate 400 mg 04/30/21 09:00 05/02/21 10:11 Megestrol Acetate 400 Mg/10 Ml Oral.Susp PO 400 mg DAILY BELEM Administration Senna 17.2 mg 04/26/21 20:24 Sennosides 8.6 Mg Tablet PO BEDTIME PRN Constipation Sodium Chloride 3 ml 04/27/21 00:00 05/02/21 10:12 0.9 % Sodium Chloride Flush 3 Ml Syringe IVFLUSH 3 ml QSHIFT [facility] Administration Labs CBC & Chem 7: 04/29/21 06:29 04/29/21 06:29 Microbiology Microbiology Results: Microbiology 04/26/21 16:38 Blood Culture - Final Blood - Venous No growth after 5 days. 04/26/21 16:39 Blood Culture - Final Blood - Venous No growth after 5 days. Quality Stroke Does the patient have a stroke diagnosis?: No VTE Prior VTE?: No VTE Risk Level:: Medical - moderate - high VTE Device Contraindication: N/A - Device Ordered VTE Drug Contraindication: N/A - Med Ordered Assessment and Plan (1) Acute kidney failure: Status: Acute Assessment and Plan: 85-year-old female with a past medical history of hypertension, hyperlipidemia, question early dementia, recurrent UTI, history of encephalopathy presented to the hospital with a chief complaint of recurrent falls; recently finished a course of Bactrim for UTI; noted to have T12 compression fracture, LILY, hyperkalemia, transaminitis. Recurrent falls secondary to physical deconditioning CT head showed no acute findings. folate defeciency without anemia - replace Fall precautions PT/OT moderate to severe cervical spine spondylosis/T12 compression fracture: MRI - t12 fracture is acute Pain control - reports pain occasionally only, but not working well with pt, not claiming to be due to pain, but suspect patient may not be able to express properly due to dementia and that she is not participating because of her pain will pursue kyphoplasty tomorrow hold heparin moderate protein calorie malnutrition ensure megace appetite somewhat improved LILY resolved Hypertension amlodipine Transaminitis possible NAFLD
[2021-05-03] VITALS (10 sets, daily range): BP systolic 98–159; BP diastolic 42–77; PULSE 62–88; RESP 16–24; TEMP 36.3–37.3; O2SAT 94–98
[2021-05-03 06:52] LABS: Hemoglobin 11.8 g/dl (12.0-16.0); Mean Corpuscular HGB Conc 33.7 g/dl (31.0-35.0); Mean Corpuscular Hemoglobin 27.1 pg (27.0-33.0); Mean Corpuscular Volume 80.3 fL (80-98); Platelet Count 230 X10*3/uL (160-400); Red Blood Count 4.36 X10*6/uL (4.20-5.50); White Blood Count 10.7 X10*3/uL (4.8-10.8)
[2021-05-03 07:09] LABS: INTERNATIONAL NORM RATIO 1.2 (0.9-1.1); Prothrombin Time 13.6 SEC (9.9-13.0)
[2021-05-03 07:11] LABS: Partial Thromboplastin Time 29.4 SEC (24.1-38.0)
[2021-05-03 07:17] LABS: Anion Gap 12 (12-20); Blood Urea Nitrogen 12 mg/dL (9-16); Calcium 8.8 mg/dL (8.4-10.2); Carbon Dioxide 23 mmol/L (22-29); Chloride 103 mmol/L (96-108); Glucose Fasting 118 mg/dL (60-99); Potassium 3.1 mmol/L (3.3-5.1); Sodium 135 mmol/L (135-145)
[2021-05-03] MEDS: Dextrose 5 % and 0.45 % NaCl 1,000 ML 50 ML IVCONT (08:17)
[2021-05-03 09:11] LABS: Creatinine Clr Calc Pharmacy 24.8
[2021-05-03 09:14] LABS: Estimated Glomerular Filt Rate 39
[2021-05-03 09:15] LABS: Creatinine Clr Calc Pharmacy 27.8
[2021-05-03 09:18] LABS: Creatinine Clr Calc Pharmacy 31.9
[2021-05-03 09:21] LABS: Creatinine Clr Calc Pharmacy 31.2
[2021-05-03 09:22] LABS: Creatinine Clr Calc Pharmacy 43.9
[2021-05-03 09:23] LABS: Estimated Glomerular Filt Rate > 60
[2021-05-03] MEDS: Lidocaine 4 % Cream KIT 1 APPL TOPICAL (09:57)
[2021-05-03] MEDS: amLODIPine Besylate 10 MG TABLET PO (09:57)
[2021-05-03] MEDS: Gabapentin 100 MG CAPSULE PO ×2 (09:57→19:33)
[2021-05-03] MEDS: Potassium Chloride/H20 10 MEQ/100 ML PIGGYBACK 100 MEQ IV ×4 (09:58→19:33)
--- NOTE | 2021-05-03 10:09 | HO.PM.IMPN ---
Subjective Subjective Date of Service: 05/03/21 Interval History: back pain Cardiovascular Cardiovascular: Reports no additional cardiovascular complaints Gastrointestinal Gastrointestinal: Reports no additional gastrointestinal complaints Physical Exam Vital Signs: Vital Signs: Last Vital Signs Temp 97.5 F 05/03/21 08:00 Pulse 62 05/03/21 08:00 Resp 18 05/03/21 08:00 BP 150/60 H 05/03/21 08:00 Pulse Ox 97 05/03/21 08:00 Body Mass Index 0.1 General: in pain Resp: CTA bilateral CVS: S1,S2,RRR GI: soft, non tender, non distended Neuro: motor grossly intact Psych: impaired insight Objective Data Current Medications Generic Name Dose Route Start Last Admin Trade Name Freq PRN Reason Stop Dose Admin Amlodipine Besylate 10 mg 04/27/21 14:10 05/03/21 09:57 Amlodipine Besylate 10 Mg Tablet PO 10 mg DAILY BELEM Administration Protocol Atorvastatin Calcium 10 mg 04/27/21 09:00 05/03/21 09:57 Atorvastatin Calcium 10 Mg Tablet PO 10 mg DAILY BELEM Administration Folic Acid 1 mg 04/28/21 09:00 05/03/21 09:57 Folic Acid 1 Mg Tablet PO 1 mg DAILY BELEM Administration Gabapentin 100 mg 04/27/21 21:00 05/03/21 09:57 Gabapentin 100 Mg Capsule PO 100 mg TID BELEM Administration Dextrose/Sodium Chloride 1,000 mls @ 50 mls/hr 05/03/21 06:45 05/03/21 08:17 D51/2ns IVCONT 50 mls/hr .Q20H BELEM Administration Potassium Chloride 10 meq in 100 mls @ 100 mls/hr 05/03/21 09:30 05/03/21 09:58 IV 05/03/21 13:29 100 mls/hr Q1H BELEM Administration Lidocaine HCl 1 appl 04/27/21 09:00 05/03/21 09:57 Lidocaine 4 % Cream Kit TOPICAL 1 appl DAILY BELEM Administration Protocol Megestrol Acetate 400 mg 04/30/21 09:00 05/03/21 09:57 Megestrol Acetate 400 Mg/10 Ml Oral.Susp PO 400 mg DAILY BELEM Administration Senna 17.2 mg 04/26/21 20:24 Sennosides 8.6 Mg Tablet PO BEDTIME PRN Constipation Sodium Chloride 3 ml 04/27/21 00:00 05/03/21 08:18 0.9 % Sodium Chloride Flush 3 Ml Syringe IVFLUSH Not Given QSHIFT [facility] Labs CBC & Chem 7: 05/03/21 05:57 05/03/21 05:57 Labs: Laboratory Results - last 24 hr 04/26/21 04/27/21 04/28/21 21:56 05:21 09:55 WBC RBC Hgb Hct MCV MCH MCHC RDW Plt Count MPV Absolute Nucleated RBC Nucleated RBC % (auto) PT INR APTT Sodium Potassium Chloride Carbon Dioxide Anion Gap BUN Creatinine 1.31 1.17 1.02 Estim Creat Clear Calc 24.8 27.8 31.9 Estimated GFR 39 Fasting Glucose Calcium 04/29/21 05/03/21 05/03/21 06:29 05:57 05:57 WBC 10.7 RBC 4.36 Hgb 11.8 L Hct 35.0 L D MCV 80.3 MCH 27.1 MCHC 33.7 RDW 14.0 Plt Count 230 D MPV 12.0 Absolute Nucleated RBC 0.000 Nucleated RBC % (auto) 0.0 PT 13.6 H INR 1.2 H APTT 29.4 Sodium Potassium Chloride Carbon Dioxide Anion Gap BUN Creatinine 1.04 Estim Creat Clear Calc 31.2 Estimated GFR Fasting Glucose Calcium 05/03/21 05:57 WBC RBC Hgb Hct MCV MCH MCHC RDW Plt Count MPV Absolute Nucleated RBC Nucleated RBC % (auto) PT INR APTT Sodium 135 Potassium 3.1 L D Chloride 103 Carbon Dioxide 23 Anion Gap 12 BUN 12 Creatinine 0.74 Estim Creat Clear Calc 43.9 Estimated GFR > 60 Fasting Glucose 118 H Calcium 8.8 D Quality Stroke Does the patient have a stroke diagnosis?: No VTE Prior VTE?: No VTE Risk Level:: Medical - moderate - high VTE Device Contraindication: N/A - Device Ordered VTE Drug Contraindication: N/A - Med Ordered Assessment and Plan (1) Acute kidney failure: Status: Acute Assessment and Plan: 85-year-old female with a past medical history of hypertension, hyperlipidemia, question early dementia, recurrent UTI, history of encephalopathy presented to the hospital with a chief complaint of recurrent falls; recently finished a course of Bactrim for UTI; noted to have T12 compression fracture, LILY, hyperkalemia, transaminitis. Recurrent falls secondary to physical deconditioning CT head showed no acute findings. folate defeciency without anemia - replace Fall precautions PT/OT moderate to severe cervical spine spondylosis/T12 compression fracture: MRI - t12 fracture is acute Pain control - reports pain occasionally only, but not working well with pt, not claiming to be due to pain, but suspect patient may not be able to express properly due to dementia and that she is not participating because of her pain will pursue kyphoplasty today holding heparin hypokalemia replace, monitor moderate protein calorie malnutrition ensure megace appetite somewhat improved LILY resolved Hypertension amlodipine Transaminitis possible NAFLD
--- NOTE | 2021-05-03 11:43 | MHC.SLORD ---
Speech Language Pathology Order Status: Per chart review, pt is NPO for procedure later today. VIBRATION ANALYST will continue to follow as appropriate.
[2021-05-03] MEDS: Lactated Ringers 500 ML 20 ML IVCONT (13:00)
--- NOTE | 2021-05-03 13:09 | P.CONAN_ITS ---
Documented by User: Rusty Tran 05/03/21 13:45 [facility], [facility] Past Medical History Medical History Dementia HLD (hyperlipidemia) HTN (hypertension) UTI (urinary tract infection) Social History Social History Household Members: Family Household Members Other:: pt lives with son, has [employer] Housing: House Do you presently have visiting nurse or other home services: No (unsure) Alcohol intake: never Patient Tobacco Use Status: Never used Tobacco Use of substances other than those prescribed or required for medical reasons: No Currently Displaying Signs/Symptoms of Drug Intoxication Withdrawal: No Have you been hit, kicked, punched, or otherwise hurt by someone within the past year? If so, by whom?: No Do you feel safe in your current relationship?: No Current Relationship Is there a partner from a previous relationship who is making you feel unsafe now?: No Are you made to feel afraid or neglected: No Advance Directives: No Advance Directives Information Provided: Yes Do you have thoughts of harming others: None Do you have a plan to hurt others: No Plan Recently lost weight without trying: Unsure Nutrition Risks: No Nutritional Risk service: No Current occupational status: retired Meds Allergies Allergy/AdvReac Type Severity Reaction Status Date / Time strawberry Allergy Unknown Verified 04/28/21 19:32 Home Medications Medication Instructions Recorded Confirmed Last Taken Type amlodipine 1 tab PO DAILY 04/26/21 04/26/21 Unknown History atorvastatin 1 tab PO DAILY 04/26/21 04/26/21 Unknown History irbesartan 1 tab PO DAILY 04/26/21 04/26/21 Unknown History quetiapine 1 tab PO DAILY 04/26/21 04/26/21 Unknown History sulfamethoxazole-trimethoprim 1 tab PO Q12H 04/26/21 04/26/21 Unknown History Exam Airway Mallampati Class: II TM Dist: >3cm Neck ROM: Full Heart: [id number] Lungs: cta b/l Assessment and Plan Assessment Anesthesia Assessment: Anesthesia Plan Discussed, PAT Visit and Chart Reviewed Final Anesthetic Review NPO: Yes ASA Class: III Final Preanesthetic Review: No Changes in Pt Med Stat, Meds/Allgs Chart Reviewed, Consent Obtained/Reviewed and Anes Risks/Benef Reviewed Patient Risk: Intermediate Procedure Risk: Low Assessment/Block/Sedation in SS: Assess/Block/Sedation-SS Anesthetic Plan Anesthetic Plan: MAC: and Agree w/ Assess. and Plan (Dr. Espinoza spoke with the patients son in full detail about the anesthesia and informe consent was taken) Disposition: Standard PACU Documented by User: Earl Espinoza MD 05/03/21 16:02 [facility] Active Problems Active Problems: All Active Problems (Updated 04/27/21 @ 12:35 by Casandra Rico MD) Alzheimer's disease (Acute) Falls (Acute) Compression fracture of T12 vertebra (Acute) Acute hyperkalemia (Acute) Acute kidney failure (Acute) Elevated LFTs (Acute) Past Medical History Medical History Dementia HLD (hyperlipidemia) HTN (hypertension) UTI (urinary tract infection) Social History Social History Household Members: Family Household Members Other:: pt lives with son, has [employer] Housing: House Do you presently have visiting nurse or other home services: No (unsure) Alcohol intake: never Patient Tobacco Use Status: Never used Tobacco Use of substances other than those prescribed or required for medical reasons: No Currently Displaying Signs/Symptoms of Drug Intoxication Withdrawal: No Have you been hit, kicked, punched, or otherwise hurt by someone within the past year? If so, by whom?: No Do you feel safe in your current relationship?: No Current Relationship Is there a partner from a previous relationship who is making you feel unsafe now?: No Are you made to feel afraid or neglected: No Advance Directives: No Advance Directives Information Provided: Yes Do you have thoughts of harming others: None Do you have a plan to hurt others: No Plan Recently lost weight without trying: Unsure Nutrition Risks: No Nutritional Risk service: No Current occupational status: retired Meds Allergies Allergy/AdvReac Type Severity Reaction Status Date / Time strawberry Allergy Unknown Verified 04/28/21 19:32 Active Medications: Current Medications Generic Name Dose Route Start Last Admin Trade Name Aidee PRN Reason Stop Dose Admin Amlodipine Besylate 10 mg 04/27/21 14:10 05/03/21 09:57 Amlodipine Besylate 10 Mg Tablet PO 10 mg DAILY BELEM Administration Protocol Atorvastatin Calcium 10 mg 04/27/21 09:00 05/03/21 10:12 Atorvastatin Calcium 10 Mg Tablet PO Not Given DAILY BELEM Folic Acid 1 mg 04/28/21 09:00 05/03/21 10:12 Folic Acid 1 Mg Tablet PO Not Given DAILY BELEM Gabapentin 100 mg 04/27/21 21:00 05/03/21 09:57 Gabapentin 100 Mg Capsule PO 100 mg TID BELEM Administration Dextrose/Sodium Chloride 1,000 mls @ 50 mls/hr 05/03/21 06:45 05/03/21 08:17 D51/2ns IVCONT 50 mls/hr .Q20H BELEM Administration Potassium Chloride 10 meq in 100 mls @ 100 mls/hr 05/03/21 09:30 05/03/21 12:11 IV 05/03/21 13:29 Infused Q1H BELEM Infusion Lidocaine HCl 1 appl 04/27/21 09:00 05/03/21 09:57 Lidocaine 4 % Cream Kit TOPICAL 1 appl DAILY BELEM Administration Protocol Megestrol Acetate 400 mg 04/30/21 09:00 05/03/21 10:13 Megestrol Acetate 400 Mg/10 Ml Oral.Susp PO Not Given DAILY [facility] Senna 17.2 mg 04/26/21 20:24 Sennosides 8.6 Mg Tablet PO BEDTIME PRN Constipation Sodium Chloride 3 ml 04/27/21 00:00 05/03/21 08:18 0.9 % Sodium Chloride Flush 3 Ml Syringe IVFLUSH Not Given QSHIFT [facility] Home Medications Medication Instructions Recorded Confirmed Last Taken Type amlodipine 1 tab PO DAILY 04/26/21 04/26/21 Unknown History atorvastatin 1 tab PO DAILY 04/26/21 04/26/21 Unknown History irbesartan 1 tab PO DAILY 04/26/21 04/26/21 Unknown History quetiapine 1 tab PO DAILY 04/26/21 04/26/21 Unknown History sulfamethoxazole-trimethoprim 1 tab PO Q12H 04/26/21 04/26/21 Unknown History Exam Exam Date and Time: May 03, 2021 1309 Height,Weight and Vital Signs: Height 5 ft 2 in Weight 56.5 kg Last Vital Signs Temp 98.0 F 05/03/21 11:34 Pulse 79 05/03/21 11:34 Resp 18 05/03/21 11:34 BP 141/58 H 05/03/21 11:34 Pulse Ox 97 05/03/21 11:34 Pertinent Lab Results Pertinent Lab Results: Laboratory Tests 04/26/21 04/26/21 04/26/21 16:39 16:39 16:39 WBC 13.9 H RBC 5.05 Hgb 13.9 Hct 41.0 MCV 81.2 MCH 27.5 MCHC 33.9 RDW 14.3 Plt Count 257 MPV 12.5 H Immature Gran % (Auto) 0.6 H Neut % (Auto) 88.3 H Lymph % (Auto) 6.2 L [place] % (Auto) 4.5 Eos % (Auto) 0.1 Baso % (Auto) 0.3 Lymph # (Auto) 0.9 L [place] # (Auto) 0.6 Eos # (Auto) 0.0 Baso # (Auto) 0.0 Abs Immat Gran (auto) 0.09 H Absolute Neuts (auto) 12.3 H Absolute Nucleated RBC 0.000 Nucleated RBC % (auto) 0.0 PT 13.1 H INR 1.2 H APTT 31.2 Sodium 132 L Potassium 5.6 H Chloride 100 Carbon Dioxide 18 L Anion Gap 20 BUN 25 H Creatinine 1.57 H Estim Creat Clear Calc 25.0 Estimated GFR 31 Random Glucose 105 Fasting Glucose Estimat Average Glucose Hemoglobin A1c % Calcium 10.4 H Magnesium Total Bilirubin Direct Bilirubin AST ALT Alkaline Phosphatase Ammonia Total Creatine Kinase Troponin I High Sens Total Protein Albumin Triglycerides Cholesterol LDL Cholesterol, Calc HDL Cholesterol Vitamin B12 Folate TSH Urine Color Urine Appearance Urine pH Ur Specific [place] Urine Protein Urine Glucose (UA) Urine Ketones Urine Blood Urine Nitrite Ur Leukocyte Esterase Urine RBC Urine WBC Ur Squamous Epith Cells Urine Bacteria Hyaline Casts Urine Mucus COVID-19 (GIANNI) COVID-19 Clin Com Hepatitis A IgM Ab Hep Bs Antigen Hep Bs Antibody Hep B Core Total Ab Hepatitis C Ab (EIA) 04/26/21 04/26/21 04/26/21 16:39 16:39 19:15 WBC RBC Hgb Hct MCV MCH MCHC RDW Plt Count MPV Immature Gran % (Auto) Neut % (Auto) Lymph % (Auto) [place] % (Auto) Eos % (Auto) Baso % (Auto) Lymph # (Auto) [place] # (Auto) Eos # (Auto) Baso # (Auto) Abs Immat Gran (auto) Absolute Neuts (auto) Absolute Nucleated RBC Nucleated RBC % (auto) PT INR APTT Sodium Potassium Chloride Carbon Dioxide Anion Gap BUN Creatinine Estim Creat Clear Calc Estimated GFR Random Glucose Fasting Glucose Estimat Average Glucose Hemoglobin A1c % Calcium Magnesium 2.4 Total Bilirubin 1.5 H Direct Bilirubin 0.6 H AST 139 H ALT 197 H Alkaline Phosphatase 92 Ammonia Total Creatine Kinase 17 L Troponin I High Sens 3.9 Total Protein 8.2 H Albumin 4.2 Triglycerides Cholesterol LDL Cholesterol, Calc HDL Cholesterol Vitamin B12 Folate TSH Urine Color Urine Appearance Urine pH Ur Specific [place] Urine Protein Urine Glucose (UA) Urine Ketones Urine Blood Urine Nitrite Ur Leukocyte Esterase Urine RBC Urine WBC Ur Squamous Epith Cells Urine Bacteria Hyaline Casts Urine Mucus COVID-19 (GIANNI) Negative COVID-19 Clin Com See Note Hepatitis A IgM Ab Hep Bs Antigen Hep Bs Antibody Hep B Core Total Ab Hepatitis C Ab (EIA) 04/26/21 04/26/21 04/26/21 19:28 21:56 21:56 WBC RBC Hgb Hct MCV MCH MCHC RDW Plt Count MPV Immature Gran % (Auto) Neut % (Auto) Lymph % (Auto) [place] % (Auto) Eos % (Auto) Baso % (Auto) Lymph # (Auto) [place] # (Auto) Eos # (Auto) Baso # (Auto) Abs Immat Gran (auto) Absolute Neuts (auto) Absolute Nucleated RBC Nucleated RBC % (auto) PT INR APTT Sodium 134 L Potassium 4.3 D Chloride 107 Carbon Dioxide 16 L Anion Gap 15 BUN 20 H Creatinine 1.31 Estim Creat Clear Calc 24.8 Estimated GFR 39 Random Glucose 77 Fasting Glucose Estimat Average Glucose Hemoglobin A1c % Calcium 9.3 D Magnesium Total Bilirubin Direct Bilirubin AST ALT Alkaline Phosphatase Ammonia Total Creatine Kinase Troponin I High Sens 5.3 Total Protein Albumin Triglycerides Cholesterol LDL Cholesterol, Calc HDL Cholesterol Vitamin B12 Folate TSH Urine Color YELLOW Urine Appearance CLEAR Urine pH 6.0 Ur Specific [place] 1.020 Urine Protein NEG Urine Glucose (UA) >=1000 H Urine Ketones 15 Urine Blood NEG Urine Nitrite NEG Ur Leukocyte Esterase NEG Urine RBC 0-2 Urine WBC 0-2 Ur Squamous Epith Cells NONE Urine Bacteria TRACE Hyaline Casts 5-9 Urine Mucus TRACE COVID-19 (GIANNI) COVID-19 Clin Com Hepatitis A IgM Ab Hep Bs Antigen Hep Bs Antibody Hep B Core Total Ab Hepatitis C Ab (EIA) 04/27/21 04/27/21 04/27/21 05:21 05:21 05:21 WBC RBC Hgb Hct MCV MCH MCHC RDW Plt Count MPV Immature Gran % (Auto) Neut % (Auto) Lymph % (Auto) [place] % (Auto) Eos % (Auto) Baso % (Auto) Lymph # (Auto) [place] # (Auto) Eos # (Auto) Baso # (Auto) Abs Immat Gran (auto) Absolute Neuts (auto) Absolute Nucleated RBC Nucleated RBC % (auto) PT INR APTT Sodium Potassium Chloride Carbon Dioxide Anion Gap BUN Creatinine Estim Creat Clear Calc Estimated GFR Random Glucose Fasting Glucose Estimat Average Glucose Hemoglobin A1c % Calcium Magnesium Total Bilirubin Direct Bilirubin AST ALT Alkaline Phosphatase Ammonia Total Creatine Kinase Troponin I High Sens Total Protein Albumin Triglycerides Cholesterol LDL Cholesterol, Calc HDL Cholesterol Vitamin B12 484 Folate 3.6 L TSH 0.37 Urine Color Urine Appearance Urine pH Ur Specific [place] Urine Protein Urine Glucose (UA) Urine Ketones Urine Blood Urine Nitrite Ur Leukocyte Esterase Urine RBC Urine WBC Ur Squamous Epith Cells Urine Bacteria Hyaline Casts Urine Mucus COVID-19 (GIANNI) COVID-19 Clin Com Hepatitis A IgM Ab Nonreactive Hep Bs Antigen Negative Hep Bs Antibody NONREACTIVE Hep B Core Total Ab Nonreactive Hepatitis C Ab (EIA) Nonreactive 04/27/21 04/27/21 04/27/21 05:21 05:21 05:21 WBC 7.4 RBC 4.50 Hgb 12.1 Hct 37.4 MCV 83.1 MCH 26.9 L MCHC 32.4 RDW 14.4 Plt Count 197 MPV 12.9 H Immature Gran % (Auto) 0.4 Neut % (Auto) 70.4 Lymph % (Auto) 18.5 L [place] % (Auto) 9.5 Eos % (Auto) 0.7 Baso % (Auto) 0.5 Lymph # (Auto) 1.4 [place] # (Auto) 0.7 Eos # (Auto) 0.1 Baso # (Auto) 0.0 Abs Immat Gran (auto) 0.03 Absolute Neuts (auto) 5.2 Absolute Nucleated RBC 0.000 Nucleated RBC % (auto) 0.0 PT INR APTT Sodium 134 L Potassium 4.4 Chloride 107 Carbon Dioxide 18 L Anion Gap 13 BUN 17 H Creatinine 1.17 Estim Creat Clear Calc 27.8 Estimated GFR 44 Random Glucose 83 Fasting Glucose Estimat Average Glucose Hemoglobin A1c % Calcium 9.5 Magnesium 2.1 Total Bilirubin Direct Bilirubin AST ALT Alkaline Phosphatase Ammonia Total Creatine Kinase Troponin I High Sens Total Protein Albumin Triglycerides Cholesterol LDL Cholesterol, Calc HDL Cholesterol Vitamin B12 Folate TSH Urine Color Urine Appearance Urine pH Ur Specific [place] Urine Protein Urine Glucose (UA) Urine Ketones Urine Blood Urine Nitrite Ur Leukocyte Esterase Urine RBC Urine WBC Ur Squamous Epith Cells Urine Bacteria Hyaline Casts Urine Mucus COVID-19 (GIANNI) COVID-19 Clin Com Hepatitis A IgM Ab Hep Bs Antigen Hep Bs Antibody Hep B Core Total Ab Hepatitis C Ab (EIA) 04/27/21 04/28/21 04/28/21 05:21 09:55 09:55 WBC 7.7 RBC 4.77 Hgb 13.1 Hct 40.0 MCV 83.9 MCH 27.5 MCHC 32.8 RDW 14.3 Plt Count 169 MPV 11.9 Immature Gran % (Auto) Neut % (Auto) Lymph % (Auto) [place] % (Auto) Eos % (Auto) Baso % (Auto) Lymph # (Auto) [place] # (Auto) Eos # (Auto) Baso # (Auto) Abs Immat Gran (auto) Absolute Neuts (auto) Absolute Nucleated RBC 0.000 Nucleated RBC % (auto) 0.0 PT INR APTT Sodium 134 L Potassium 4.3 Chloride 107 Carbon Dioxide 16 L Anion Gap 15 BUN 11 Creatinine 1.02 Estim Creat Clear Calc 31.9 Estimated GFR 52 Random Glucose 79 Fasting Glucose Estimat Average Glucose Hemoglobin A1c % Calcium 9.3 Magnesium Total Bilirubin 1.3 H Direct Bilirubin 0.5 AST 91 H ALT 143 H Alkaline Phosphatase 78 Ammonia Total Creatine Kinase Troponin I High Sens Total Protein 6.7 Albumin 3.5 Triglycerides Cholesterol LDL Cholesterol, Calc HDL Cholesterol Vitamin B12 Folate TSH Urine Color Urine Appearance Urine pH Ur Specific [place] Urine Protein Urine Glucose (UA) Urine Ketones Urine Blood Urine Nitrite Ur Leukocyte Esterase Urine RBC Urine WBC Ur Squamous Epith Cells Urine Bacteria Hyaline Casts Urine Mucus COVID-19 (GIANNI) COVID-19 Clin Com Hepatitis A IgM Ab Hep Bs Antigen Hep Bs Antibody Hep B Core Total Ab Hepatitis C Ab (EIA) 04/28/21 04/29/21 04/29/21 09:55 06:29 06:29 WBC 9.6 RBC 5.34 Hgb 14.7 Hct 44.5 MCV 83.3 MCH 27.5 MCHC 33.0 RDW 14.3 Plt Count 155 L MPV 12.2 Immature Gran % (Auto) Neut % (Auto) Lymph % (Auto) [place] % (Auto) Eos % (Auto) Baso % (Auto) Lymph # (Auto) [place] # (Auto) Eos # (Auto) Baso # (Auto) Abs Immat Gran (auto) Absolute Neuts (auto) Absolute Nucleated RBC 0.000 Nucleated RBC % (auto) 0.0 PT INR APTT Sodium 134 L Potassium 4.1 Chloride 105 Carbon Dioxide 20 L Anion Gap 13 BUN 14 Creatinine 1.04 Estim Creat Clear Calc 31.2 Estimated GFR 50 Random Glucose Fasting Glucose 96 Estimat Average Glucose 114 Hemoglobin A1c % 5.6 Calcium 9.7 Magnesium Total Bilirubin 1.4 H Direct Bilirubin 0.6 H AST 65 H ALT 107 H Alkaline Phosphatase 84 Ammonia Total Creatine Kinase Troponin I High Sens Total Protein 7.6 Albumin 3.7 Triglycerides 89 Cholesterol 133 LDL Cholesterol, Calc 82 HDL Cholesterol 34 Vitamin B12 Folate TSH Urine Color Urine Appearance Urine pH Ur Specific [place] Urine Protein Urine Glucose (UA) Urine Ketones Urine Blood Urine Nitrite Ur Leukocyte Esterase Urine RBC Urine WBC Ur Squamous Epith Cells Urine Bacteria Hyaline Casts Urine Mucus COVID-19 (GIANNI) COVID-19 Clin Com Hepatitis A IgM Ab Hep Bs Antigen Hep Bs Antibody Hep B Core Total Ab Hepatitis C Ab (EIA) 04/29/21 04/29/21 04/29/21 06:29 06:29 07:51 WBC RBC Hgb Hct MCV MCH MCHC RDW Plt Count MPV Immature Gran % (Auto) Neut % (Auto) Lymph % (Auto) [place] % (Auto) Eos % (Auto) Baso % (Auto) Lymph # (Auto) [place] # (Auto) Eos # (Auto) Baso # (Auto) Abs Immat Gran (auto) Absolute Neuts (auto) Absolute Nucleated RBC Nucleated RBC % (auto) PT INR APTT Sodium Potassium Chloride Carbon Dioxide Anion Gap BUN Creatinine Estim Creat Clear Calc Estimated GFR Random Glucose Fasting Glucose Estimat Average Glucose 111 Hemoglobin A1c % 5.5 Calcium Magnesium Total Bilirubin Direct Bilirubin AST ALT Alkaline Phosphatase Ammonia 24 Total Creatine Kinase Troponin I High Sens Total Protein Albumin Triglycerides Cholesterol LDL Cholesterol, Calc HDL Cholesterol Vitamin B12 Folate TSH Urine Color Urine Appearance Urine pH Ur Specific [place] Urine Protein Urine Glucose (UA) Urine Ketones Urine Blood Urine Nitrite Ur Leukocyte Esterase Urine RBC Urine WBC Ur Squamous Epith Cells Urine Bacteria Hyaline Casts Urine Mucus COVID-19 (GIANNI) COVID-19 Clin Com Hepatitis A IgM Ab Hep Bs Antigen Hep Bs Antibody Hep B Core Total Ab Hepatitis C Ab (EIA) Nonreactive 05/03/21 05/03/21 05/03/21 05:57 05:57 05:57 WBC 10.7 RBC 4.36 Hgb 11.8 L Hct 35.0 L D MCV 80.3 MCH 27.1 MCHC 33.7 RDW 14.0 Plt Count 230 D MPV 12.0 Immature Gran % (Auto) Neut % (Auto) Lymph % (Auto) [place] % (Auto) Eos % (Auto) Baso % (Auto) Lymph # (Auto) [place] # (Auto) Eos # (Auto) Baso # (Auto) Abs Immat Gran (auto) Absolute Neuts (auto) Absolute Nucleated RBC 0.000 Nucleated RBC % (auto) 0.0 PT 13.6 H INR 1.2 H APTT 29.4 Sodium 135 Potassium 3.1 L D Chloride 103 Carbon Dioxide 23 Anion Gap 12 BUN 12 Creatinine 0.74 Estim Creat Clear Calc 43.9 Estimated GFR > 60 Random Glucose Fasting Glucose 118 H Estimat Average Glucose Hemoglobin A1c % Calcium 8.8 D Magnesium Total Bilirubin Direct Bilirubin AST ALT Alkaline Phosphatase Ammonia Total Creatine Kinase Troponin I High Sens Total Protein Albumin Triglycerides Cholesterol LDL Cholesterol, Calc HDL Cholesterol Vitamin B12 Folate TSH Urine Color Urine Appearance Urine pH Ur Specific [place] Urine Protein Urine Glucose (UA) Urine Ketones Urine Blood Urine Nitrite Ur Leukocyte Esterase Urine RBC Urine WBC Ur Squamous Epith Cells Urine Bacteria Hyaline Casts Urine Mucus COVID-19 (GIANNI) COVID-19 Clin Com Hepatitis A IgM Ab Hep Bs Antigen Hep Bs Antibody Hep B Core Total Ab Hepatitis C Ab (EIA)
--- NOTE | 2021-05-03 13:53 | PM.ANESPN ---
Subjective Subjective Date of Service: 05/03/21 Interval history: Discussed Mrs. Rosas's situation at length with her son Adam. My main concern was how well she would breathe once she was turned prone. I asked him if he and his brother had any thoughts to her previous discussions about resuscitation issues. He mentioned to me that a doctor casually asked her if she would want resuscitation. She was unsure, but Adam told me that he and his brother just wanted her to be comfortable. They were clear that they did not want any heroic measures. I discussed DNR status with him briefly. I indicated to him that he needed to have further discussions about that with her doctors. In the meanwhile, I told him that during this procedure, we would go slow and very carefully. If anything happened in the nature of requiring life support, we would exercise are best judgment. He was agreeable to that. Physical Exam Vital Signs: Vital Signs: Last Vital Signs Temp 98.0 F 05/03/21 11:34 Pulse 79 05/03/21 11:34 Resp 18 05/03/21 11:34 BP 141/58 H 05/03/21 11:34 Pulse Ox 97 05/03/21 11:34 Body Mass Index 0.1 Progress Note: A&P Fall Risk Details Current Medications: Current Medications Generic Name Dose Route Start Last Admin Trade Name Sgq PRN Reason Stop Dose Admin Amlodipine Besylate 10 mg 04/27/21 14:10 05/03/21 09:57 Amlodipine Besylate 10 Mg Tablet PO 10 mg DAILY BELEM Administration Protocol Atorvastatin Calcium 10 mg 04/27/21 09:00 05/03/21 10:12 Atorvastatin Calcium 10 Mg Tablet PO Not Given DAILY BELEM Folic Acid 1 mg 04/28/21 09:00 05/03/21 10:12 Folic Acid 1 Mg Tablet PO Not Given DAILY BELEM Gabapentin 100 mg 04/27/21 21:00 05/03/21 09:57 Gabapentin 100 Mg Capsule PO 100 mg TID BELEM Administration Dextrose/Sodium Chloride 1,000 mls @ 50 mls/hr 05/03/21 06:45 05/03/21 08:17 D51/2ns IVCONT 50 mls/hr .Q20H BELEM Administration Lactated Ringer's 500 mls @ 20 mls/hr 05/03/21 13:45 05/03/21 13:00 Lr IVCONT 20 mls/hr .Q24H BELEM Administration Lidocaine HCl 1 appl 04/27/21 09:00 05/03/21 09:57 Lidocaine 4 % Cream Kit TOPICAL 1 appl DAILY BELEM Administration Protocol Megestrol Acetate 400 mg 04/30/21 09:00 05/03/21 10:13 Megestrol Acetate 400 Mg/10 Ml Oral.Susp PO Not Given DAILY BELEM Senna 17.2 mg 04/26/21 20:24 Sennosides 8.6 Mg Tablet PO BEDTIME PRN Constipation Sodium Chloride 3 ml 04/27/21 00:00 05/03/21 08:18 0.9 % Sodium Chloride Flush 3 Ml Syringe IVFLUSH Not Given QSHIFT BELEM Time Spent With Patient Time: Total time spent is greater than 50% in coordination of care (as documented) at patient's floor/unit and/or counseling patient: Time with patient: less than 15 minutes Progress Note: Quality Stroke Does the patient have a stroke diagnosis?: No Procedures Date of Service Date of Service: 05/03/21
[2021-05-03] MEDS: Lidocaine HCl 1 % MPF 5 ML VIAL SUBCUT (15:29)
--- NOTE | 2021-05-03 16:25 | PM.ANESPN ---
Subjective Subjective Date of Service: 05/03/21 Interval history: I spoke to Mrs. Rosas's son Cassius and his in the surgical waiting area, with Adam conferenced in by cell phone. I discussed with them that their mother was in the ending phase of her life and that it would be best for her if she avoided a situation wherein she wound up on life support. I told them that she would not survive such as situation. I recommended to them that they fill out a MOLST form before she leaves the hospital. They asked me how long I thought she had left. They described to me that she has not been out of bed in a week and she basically has not been eating, and just swallowing involves a great deal of effort. She hardly opens her eyes. I indicated to them that such a condition as they described suggested to me that the end may not be too far away, but the question here was whether any of her current frailty and disability is reversible, and that I cannot comment about. Physical Exam Vital Signs: Vital Signs: Last Vital Signs Temp 99.0 F 05/03/21 16:20 Pulse 67 05/03/21 16:20 Resp 16 05/03/21 16:20 BP 142/57 H 05/03/21 16:20 Pulse Ox 98 05/03/21 16:20 Body Mass Index 0.1 Progress Note: A&P Fall Risk Details Current Medications: Current Medications Generic Name Dose Route Start Last Admin Trade Name Sgq PRN Reason Stop Dose Admin Amlodipine Besylate 10 mg 04/27/21 14:10 05/03/21 09:57 Amlodipine Besylate 10 Mg Tablet PO 10 mg DAILY BELEM Administration Protocol Atorvastatin Calcium 10 mg 04/27/21 09:00 05/03/21 10:12 Atorvastatin Calcium 10 Mg Tablet PO Not Given DAILY BELEM Folic Acid 1 mg 04/28/21 09:00 05/03/21 10:12 Folic Acid 1 Mg Tablet PO Not Given DAILY BELEM Gabapentin 100 mg 04/27/21 21:00 05/03/21 09:57 Gabapentin 100 Mg Capsule PO 100 mg TID BELEM Administration Dextrose/Sodium Chloride 1,000 mls @ 50 mls/hr 05/03/21 06:45 05/03/21 08:17 D51/2ns IVCONT 50 mls/hr .Q20H BELEM Administration Lactated Ringer's 500 mls @ 20 mls/hr 05/03/21 13:45 05/03/21 13:00 Lr IVCONT 20 mls/hr .Q24H BELEM Administration Lidocaine HCl 1 appl 04/27/21 09:00 05/03/21 09:57 Lidocaine 4 % Cream Kit TOPICAL 1 appl DAILY BELEM Administration Protocol Megestrol Acetate 400 mg 04/30/21 09:00 05/03/21 10:13 Megestrol Acetate 400 Mg/10 Ml Oral.Susp PO Not Given DAILY [facility]LEM Senna 17.2 mg 04/26/21 20:24 Sennosides 8.6 Mg Tablet PO BEDTIME PRN Constipation Sodium Chloride 3 ml 04/27/21 00:00 05/03/21 08:18 0.9 % Sodium Chloride Flush 3 Ml Syringe IVFLUSH Not Given QSHIFT BELEM Time Spent With Patient Time: Total time spent is greater than 50% in coordination of care (as documented) at patient's floor/unit and/or counseling patient: Time with patient: less than 15 minutes Progress Note: Quality Stroke Does the patient have a stroke diagnosis?: No Procedures Date of Service Date of Service: 05/03/21
[2021-05-03] MEDS: 0.9 % Sodium Chloride Flush 3 ML SYRINGE IVFLUSH (19:34)
[2021-05-04] VITALS (8 sets, daily range): BP systolic 132–153; BP diastolic 56–71; PULSE 69–87; RESP 18–20; TEMP 36.5–37; O2SAT 94–98; BMI 24.7
[2021-05-04] MEDS: Dextrose 5 % and 0.45 % NaCl 1,000 ML 50 ML IVCONT (05:44)
[2021-05-04 05:55] LABS: Hematocrit 34.1 % (37-47); Hemoglobin 11.7 g/dl (12.0-16.0); Mean Corpuscular HGB Conc 34.3 g/dl (31.0-35.0); Mean Corpuscular Hemoglobin 27.3 pg (27.0-33.0); Mean Corpuscular Volume 79.5 fL (80-98); Mean Platelet Volume 12.1 fL (9.4-12.3); Platelet Count 248 X10*3/uL (160-400); Red Blood Count 4.29 X10*6/uL (4.20-5.50); Red Cell Distribution Width 14.1 % (11.0-16.0); White Blood Count 10.6 X10*3/uL (4.8-10.8)
[2021-05-04 06:14] LABS: Anion Gap 16 (12-20); Blood Urea Nitrogen 12 mg/dL (9-16); Calcium 8.9 mg/dL (8.4-10.2); Carbon Dioxide 18 mmol/L (22-29); Chloride 101 mmol/L (96-108); Creatinine Clr Calc Pharmacy 46.4; Estimated Glomerular Filt Rate > 60; Glucose Fasting 109 mg/dL (60-99); Magnesium 1.8 mg/dL (1.6-2.6); Potassium 3.9 mmol/L (3.3-5.1); Sodium 131 mmol/L (135-145)
[2021-05-04] MEDS: Folic Acid 1 MG TABLET PO (08:42)
[2021-05-04] MEDS: Atorvastatin Calcium 10 MG TABLET PO (08:42)
[2021-05-04] MEDS: Megestrol Acetate 400 MG/10 ML ORAL.SUSP PO (08:42)
[2021-05-04] MEDS: Gabapentin 100 MG CAPSULE PO ×3 (08:42→22:20)
[2021-05-04] MEDS: amLODIPine Besylate 10 MG TABLET PO (08:42)
[2021-05-04] MEDS: 0.9 % Sodium Chloride Flush 3 ML SYRINGE IVFLUSH ×3 (08:42→22:20)
[2021-05-04] MEDS: Enoxaparin Sodium 40 MG/0.4 ML SYRINGE SUBCUT (08:42)
[2021-05-04] MEDS: Lidocaine 4 % Cream KIT 1 APPL TOPICAL (08:43)
--- NOTE | 2021-05-04 10:55 | P.PNIM_ITS ---
Subjective Subjective Date of Service: 05/04/21 Interval History: lethargic Cardiovascular Cardiovascular: Reports no additional cardiovascular complaints Respiratory Respiratory: Reports no additional respiratory complaints Physical Exam Vital Signs: Vital Signs: Last Vital Signs Temp 98.0 F 05/04/21 07:19 Pulse 70 05/04/21 08:50 Resp 18 05/04/21 07:19 BP 138/65 05/04/21 08:50 Pulse Ox 97 05/04/21 08:50 Body Mass Index 24.7 General: in pain Resp: CTA bilateral CVS: S1,S2,RRR GI: soft, non tender, non distended Neuro: motor grossly intact Psych: impaired insight Objective Data Current Medications Generic Name Dose Route Start Last Admin Trade Name Freq PRN Reason Stop Dose Admin Amlodipine Besylate 10 mg 04/27/21 14:10 05/04/21 08:42 Amlodipine Besylate 10 Mg Tablet PO 10 mg DAILY BELEM Administration Protocol Atorvastatin Calcium 10 mg 04/27/21 09:00 05/04/21 08:42 Atorvastatin Calcium 10 Mg Tablet PO 10 mg DAILY BELEM Administration Enoxaparin Sodium 40 mg 05/04/21 08:00 05/04/21 08:42 Enoxaparin Sodium 40 Mg/0.4 Ml Syringe SUBCUT 40 mg Q24H BELEM Administration Folic Acid 1 mg 04/28/21 09:00 05/04/21 08:42 Folic Acid 1 Mg Tablet PO 1 mg DAILY BELEM Administration Gabapentin 100 mg 04/27/21 21:00 05/04/21 08:42 Gabapentin 100 Mg Capsule PO 100 mg TID BELEM Administration Dextrose/Sodium Chloride 1,000 mls @ 50 mls/hr 05/03/21 06:45 05/04/21 05:44 D51/2ns IVCONT 50 mls/hr .Q20H BELEM Administration Lactated Ringer's 500 mls @ 20 mls/hr 05/03/21 13:45 05/03/21 13:00 Lr IVCONT 20 mls/hr .Q24H BELEM Administration Lidocaine HCl 1 appl 04/27/21 09:00 05/04/21 08:43 Lidocaine 4 % Cream Kit TOPICAL 1 appl DAILY BELEM Administration Protocol Megestrol Acetate 400 mg 04/30/21 09:00 05/04/21 08:42 Megestrol Acetate 400 Mg/10 Ml Oral.Susp PO 400 mg DAILY BELEM Administration Senna 17.2 mg 04/26/21 20:24 Sennosides 8.6 Mg Tablet PO BEDTIME PRN Constipation Sodium Chloride 3 ml 04/27/21 00:00 05/04/21 08:42 0.9 % Sodium Chloride Flush 3 Ml Syringe IVFLUSH 3 ml QSHIFT BELEM Administration Labs CBC & Chem 7: 05/04/21 05:07 05/04/21 05:07 Labs: Laboratory Results - last 24 hr 05/04/21 05/04/21 05:07 05:07 WBC 10.6 RBC 4.29 Hgb 11.7 L Hct 34.1 L MCV 79.5 L MCH 27.3 MCHC 34.3 RDW 14.1 Plt Count 248 MPV 12.1 Absolute Nucleated RBC 0.000 Nucleated RBC % (auto) 0.0 Sodium 131 L Potassium 3.9 D Chloride 101 Carbon Dioxide 18 L Anion Gap 16 BUN 12 Creatinine 0.70 Estim Creat Clear Calc 46.4 Estimated GFR > 60 Fasting Glucose 109 H Calcium 8.9 Magnesium 1.8 Quality Stroke Does the patient have a stroke diagnosis?: No VTE Prior VTE?: No VTE Risk Level:: Medical - moderate - high VTE Device Contraindication: N/A - Device Ordered VTE Drug Contraindication: N/A - Med Ordered Assessment and Plan (1) Acute kidney failure: Status: Acute Assessment and Plan: 85-year-old female with a past medical history of hypertension, hyperlipidemia, question early dementia, recurrent UTI, history of encephalopathy presented to the hospital with a chief complaint of recurrent falls; recently finished a cour se of Bactrim for UTI; noted to have T12 compression fracture, LILY, hyperkalemia, transaminitis. Recurrent falls secondary to physical deconditioning CT head showed no acute findings. folate defeciency without anemia - replace Fall precautions PT/OT moderate to severe cervical spine spondylosis/T12 compression fracture: MRI - t12 fracture is acute pod 1 kyphoplasty plan for SNF once ambulating a bit better moderate protein calorie malnutrition ensure megace appetite somewhat improved LILY/hyperkalemia arb held resolved Hypertension amlodipine Transaminitis possible NAFLD
--- NOTE | 2021-05-04 11:30 | HO.POSTANES ---
Post Anesthesia Evaluation Post Anesthesia Evaluation Vital Signs: Vital Signs Temp Pulse Resp BP Pulse Ox 05/04/21 08:50 70 138/65 97 05/04/21 08:42 70 138/65 05/04/21 07:19 98.0 F 70 18 138/65 97 05/04/21 04:00 98.6 F 69 20 135/67 94 Anesthesia: Monitored Mental Status: Awake Pain Control: Satisfactory Nausea/Vomiting: None Hydration: Adequate Anesthesia-Related Issues: No Anes. Related Issues
--- NOTE | 2021-05-04 12:42 | MHC.CM.PN ---
pt to be dcd today to [facility] at 3:00 son justin who was in room was notified of dc
--- NOTE | 2021-05-04 13:03 | MHC.CM.PN ---
dr carter cancelled dc till [facility] tye notified
--- NOTE | 2021-05-04 15:24 | MHC.CM.PN ---
pt accepted at [facility] family asked that pt stay another night dr carter cancelled dc [facility] notified
--- NOTE | 2021-05-04 15:35 | MHC.CM.PN ---
dc rebooked for 4:30 alexandra helton will notify chris purvis of jona today
[2021-05-05] VITALS (8 sets, daily range): BP systolic 130–154; BP diastolic 60–67; PULSE 73–87; RESP 18–20; TEMP 36.2–37.6; O2SAT 95–97; BMI 23.5
[2021-05-05] MEDS: Dextrose 5 % and 0.45 % NaCl 1,000 ML 50 ML IVCONT (00:59)
[2021-05-05] MEDS: Megestrol Acetate 400 MG/10 ML ORAL.SUSP PO (11:19)
[2021-05-05] MEDS: Enoxaparin Sodium 40 MG/0.4 ML SYRINGE SUBCUT (11:19)
[2021-05-05] MEDS: Gabapentin 100 MG CAPSULE PO ×2 (11:20→14:31)
[2021-05-05] MEDS: Folic Acid 1 MG TABLET PO (11:20)
[2021-05-05] MEDS: Atorvastatin Calcium 10 MG TABLET PO (11:20)
[2021-05-05] MEDS: amLODIPine Besylate 10 MG TABLET PO (11:21)
[2021-05-05] MEDS: 0.9 % Sodium Chloride Flush 3 ML SYRINGE IVFLUSH ×3 (11:22→21:22)
--- NOTE | 2021-05-05 11:49 | MHC.CM.PN ---
met with pts son justin and updated him on pts dc status which pt will not be dcd today will update [facility] as well
[2021-05-05] MEDS: Lidocaine 4 % Cream KIT 1 APPL TOPICAL (13:27)
--- NOTE | 2021-05-05 15:21 | HO.PM.IMPN ---
Subjective Subjective Date of Service: 05/05/21 Interval History: the patient was seen and evaluated this morning Laying in bed, encephalopathic, lethargic and difficult to arouse Able to recognize her son in the room No reported other overnight events. Systemic review: Nonverbal Physical Exam Vital Signs: Vital Signs: Last Vital Signs Temp 97.8 F 05/05/21 11:18 Pulse 75 05/05/21 13:32 Resp 18 05/05/21 11:18 BP 149/67 H 05/05/21 13:32 Pulse Ox 97 05/05/21 11:18 Body Mass Index 23.5 Const: Other: Constitutional : Encephalopathic, lethargic, not in distress Neck : Normal inspection, Supple Cardiovascular : RRR, S1 S2, no lower extremity edema Respiratory : Fair bilateral air entry, no crackles, wheezes or rhonchi Gastrointestinal: soft, lax, Normal bowel sounds, Non tender Skin : Warm/Dry Neurological : Encephalopathic, response to painful stimuli, No Gross focal deficit Objective Data Current Medications Generic Name Dose Route Start Last Admin Trade Name Sgq PRN Reason Stop Dose Admin Amlodipine Besylate 10 mg 04/27/21 14:10 05/05/21 11:21 Amlodipine Besylate 10 Mg Tablet PO 10 mg DAILY BELEM Administration Protocol Atorvastatin Calcium 10 mg 04/27/21 09:00 05/05/21 11:20 Atorvastatin Calcium 10 Mg Tablet PO 10 mg DAILY BELEM Administration Enoxaparin Sodium 40 mg 05/04/21 08:00 05/05/21 11:19 Enoxaparin Sodium 40 Mg/0.4 Ml Syringe SUBCUT 40 mg Q24H BELEM Administration Folic Acid 1 mg 04/28/21 09:00 05/05/21 11:20 Folic Acid 1 Mg Tablet PO 1 mg DAILY BELEM Administration Gabapentin 100 mg 04/27/21 21:00 05/05/21 14:31 Gabapentin 100 Mg Capsule PO 100 mg TID BELEM Administration Lidocaine HCl 1 appl 04/27/21 09:00 05/05/21 13:27 Lidocaine 4 % Cream Kit TOPICAL 1 appl DAILY BELEM Administration Protocol Megestrol Acetate 400 mg 04/30/21 09:00 05/05/21 11:19 Megestrol Acetate 400 Mg/10 Ml Oral.Susp PO 400 mg DAILY BELEM Administration Senna 17.2 mg 04/26/21 20:24 Sennosides 8.6 Mg Tablet PO BEDTIME PRN Constipation Sodium Chloride 3 ml 04/27/21 00:00 05/05/21 14:31 0.9 % Sodium Chloride Flush 3 Ml Syringe IVFLUSH 3 ml QSHIFT BELEM Administration Labs CBC & Chem 7: 05/04/21 05:07 05/04/21 05:07 Quality Stroke Does the patient have a stroke diagnosis?: No VTE Prior VTE?: No VTE Risk Level:: Medical - moderate - high VTE Device Contraindication: N/A - Device Ordered VTE Drug Contraindication: N/A - Med Ordered Assessment and Plan (1) Acute kidney failure: Status: Acute Assessment and Plan: 85-year-old female with a past medical history of hypertension, hyperlipidemia, question early dementia, recurrent UTI, history of encephalopathy presented to the hospital with a chief complaint of recurrent falls; recently finished a course of Bactrim for UTI; noted to have T12 compression fracture, LILY, hyperkalemia, transaminitis. Recurrent falls secondary to physical deconditioning folate defeciency without anemia - replace Fall precautions PT recommending long-term care Metabolic encephalopathy Seems to be secondary to hypoactive delirium, medications Discontinue gabapentin Recurrent reorientation and keep her active Moderate to severe cervical spine spondylosis/T12 compression fracture: MRI - t12 fracture is acute pod 2 kyphoplasty SNF placement seems to be challenging as patient is unable to participate with PT moderate protein calorie malnutrition ensure megace appetite somewhat improved LILY/hyperkalemia arb held resolved Hypertension amlodipine Transaminitis possible NAFLD
[2021-05-05] MEDS: Dextrose 5 % and 0.9 % NaCl 1,000 ML 50 ML IVCONT (21:38)
[2021-05-06] VITALS (8 sets, daily range): BP systolic 138–164; BP diastolic 64–71; PULSE 75–86; RESP 17–18; TEMP 36.5–37.2; O2SAT 95–98; BMI 23.4
[2021-05-06 07:11] LABS: Anion Gap 15 (12-20); Blood Urea Nitrogen 10 mg/dL (9-16); Carbon Dioxide 19 mmol/L (22-29); Chloride 105 mmol/L (96-108); Creatinine Clr Calc Pharmacy 48.5; Estimated Glomerular Filt Rate > 60; Glucose Random 104 mg/dL (60-115); Sodium 135 mmol/L (135-145)
[2021-05-06] MEDS: Enoxaparin Sodium 40 MG/0.4 ML SYRINGE SUBCUT (09:37)
[2021-05-06] MEDS: Megestrol Acetate 400 MG/10 ML ORAL.SUSP PO (09:37)
[2021-05-06] MEDS: amLODIPine Besylate 10 MG TABLET PO (09:38)
[2021-05-06] MEDS: Folic Acid 1 MG TABLET PO (09:38)
[2021-05-06] MEDS: Atorvastatin Calcium 10 MG TABLET PO (09:38)
[2021-05-06] MEDS: Lidocaine 4 % Cream KIT 1 APPL TOPICAL (09:39)
[2021-05-06] MEDS: 0.9 % Sodium Chloride Flush 3 ML SYRINGE IVFLUSH ×3 (09:39→20:37)
--- NOTE | 2021-05-06 10:24 | MHC.SLORD ---
Speech Language Pathology Order Status: Patient's breakfast tray was at bedside. Patient did not appear to eat anything. Patient was sleeping, but awoke to verbal stimuli. Patient refused food/liquid despite encouragement. Patient is currently on PUREED (NDD1) solids and thin liquids.
--- NOTE | 2021-05-06 12:13 | HO.PM.IMPN ---
Subjective Subjective Date of Service: 05/06/21 Interval History: the patient was seen and evaluated this morning Laying in bed, encephalopathic, more alert and interactive this morning Able to recognize her son in the room Remains awake after stimulation No reported other overnight events. Systemic review: Not interested in talking but denies any pain or difficulty breathing Physical Exam Vital Signs: Vital Signs: Last Vital Signs Temp 98.1 F 05/06/21 11:10 Pulse 78 05/06/21 11:10 Resp 18 05/06/21 11:10 BP 164/69 H 05/06/21 11:10 Pulse Ox 96 05/06/21 11:10 Body Mass Index 23.4 Const: Other: Constitutional : Encephalopathic but more responsive to stimuli Neck : Normal inspection, Supple Cardiovascular : RRR, S1 S2, no lower extremity edema Respiratory : Fair bilateral air entry, no crackles, wheezes or rhonchi Gastrointestinal: soft, lax, Normal bowel sounds, Non tender Skin : Warm/Dry Neurological : Alert with painful stimuli, No Gross focal deficit Objective Data Current Medications Generic Name Dose Route Start Last Admin Trade Name Aidee PRN Reason Stop Dose Admin Amlodipine Besylate 10 mg 04/27/21 14:10 05/06/21 09:38 Amlodipine Besylate 10 Mg Tablet PO 10 mg DAILY BELEM Administration Protocol Atorvastatin Calcium 10 mg 04/27/21 09:00 05/06/21 09:38 Atorvastatin Calcium 10 Mg Tablet PO 10 mg DAILY BELEM Administration Enoxaparin Sodium 40 mg 05/04/21 08:00 05/06/21 09:37 Enoxaparin Sodium 40 Mg/0.4 Ml Syringe SUBCUT 40 mg Q24H BELEM Administration Folic Acid 1 mg 04/28/21 09:00 05/06/21 09:38 Folic Acid 1 Mg Tablet PO 1 mg DAILY BELEM Administration Dextrose/Sodium Chloride 1,000 mls @ 50 mls/hr 05/05/21 21:30 05/05/21 21:38 D5ns IVCONT 50 mls/hr .Q20H BELEM Administration Lidocaine HCl 1 appl 04/27/21 09:00 05/06/21 09:39 Lidocaine 4 % Cream Kit TOPICAL 1 appl DAILY BELEM Administration Protocol Megestrol Acetate 400 mg 04/30/21 09:00 05/06/21 09:37 Megestrol Acetate 400 Mg/10 Ml Oral.Susp PO 400 mg DAILY BELEM Administration Senna 17.2 mg 04/26/21 20:24 Sennosides 8.6 Mg Tablet PO BEDTIME PRN Constipation Sodium Chloride 3 ml 04/27/21 00:00 05/06/21 09:39 0.9 % Sodium Chloride Flush 3 Ml Syringe IVFLUSH 3 ml QSHIFT BELEM Administration Labs CBC & Chem 7: 05/04/21 05:07 05/06/21 06:03 Labs: Laboratory Results - last 24 hr 05/06/21 06:03 Sodium 135 Potassium 4.0 Chloride 105 Carbon Dioxide 19 L Anion Gap 15 BUN 10 Creatinine 0.67 Estim Creat Clear Calc 48.5 Estimated GFR > 60 Random Glucose 104 Calcium 9.0 Quality Stroke Does the patient have a stroke diagnosis?: No VTE Prior VTE?: No VTE Risk Level:: Medical - moderate - high VTE Device Contraindication: N/A - Device Ordered VTE Drug Contraindication: N/A - Med Ordered Assessment and Plan (1) Acute kidney failure: Status: Acute Assessment and Plan: 85-year-old female with a past medical history of hypertension, hyperlipidemia, question early dementia, recurrent UTI, history of encephalopathy presented to the hospital with a chief complaint of recurrent falls; recently finished a course of Bactrim for UTI; noted to have T12 compression fracture, LILY, hyperkalemia, transaminitis. Recurrent falls secondary to physical deconditioning folate defeciency without anemia - replace Fall precautions PT recommending long-term care Metabolic encephalopathy Mildly better today Seems to be secondary to hypoactive delirium, medications Discontinue gabapentin Recurrent reorientation and keep her active Moderate to severe cervical spine spondylosis/T12 compression fracture: MRI - t12 fracture is acute pod 3 kyphoplasty SNF placement seems to be challenging as patient is unable to participate with PT moderate protein calorie malnutrition ensure megace appetite somewhat improved LILY/hyperkalemia arb held resolved Hypertension amlodipine Transaminitis Trended down possible NAFLD Dispo, to involve hospice team with plan to go home with hospice.
--- NOTE | 2021-05-06 12:47 | W.MHC.ACPN ---
Advanced Care Planning Note Advanced Care Planning Note Discussed with: family member(s) Time spent (in minutes): 18 Narrative: I had a chance to speak with the patient's son and healthcare proxy regarding her current hospital stay and goals of care. The patient has been the hospital for almost 10 days after sustaining a fall and having a fracture of her back bone. She had a kyphoplasty done this Monday but the patient has been deteriorating both physically and mentally during the hospital stay as she became more encephalopathic and not responsive with inability to work with physical therapist. Her oral intake has decreased but she looks more awake today. We discussed goals of care after being discharged from the hospital as she cannot go to physical therapy rehab facility based on the physical therapist evaluation. Family suggested the other son might be able to take her home by Monday. We discussed hospice care in details and what they might over to them. He seemed to be interested and agreed to meet with the hospice T to start arranging things to take the patient back home. Problems Discussed (1) Acute kidney failure:
[2021-05-06] MEDS: Dextrose 5 % and 0.9 % NaCl 1,000 ML 50 ML IVCONT (17:55)
[2021-05-07] VITALS (7 sets, daily range): BP systolic 124–170; BP diastolic 65–85; PULSE 77–88; RESP 18–20; TEMP 36.1–36.8; O2SAT 96–98; BMI 24.5
[2021-05-07] MEDS: Folic Acid 1 MG TABLET PO (08:54)
[2021-05-07] MEDS: Atorvastatin Calcium 10 MG TABLET PO (08:54)
[2021-05-07] MEDS: Enoxaparin Sodium 40 MG/0.4 ML SYRINGE SUBCUT (08:54)
[2021-05-07] MEDS: Megestrol Acetate 400 MG/10 ML ORAL.SUSP PO (08:54)
[2021-05-07] MEDS: Lidocaine 4 % Cream KIT 1 APPL TOPICAL (08:54)
[2021-05-07] MEDS: amLODIPine Besylate 10 MG TABLET PO (08:54)
[2021-05-07] MEDS: 0.9 % Sodium Chloride Flush 3 ML SYRINGE IVFLUSH ×2 (08:54→21:30)
--- NOTE | 2021-05-07 10:41 | MHC.SL.SWA ---
Speech Pathologist Impression: Risk of Aspiration Oral Phase Dysphagia Dysphasia Diet Status: Downgrade Liquid Consistency and Strategies for Safe Swallow: Liquid Intake Recommendation: Thin Liquid Intake Strategies: Small Sips Solid Food Consistency: Dietary Recommendations: Pureed (NDD1) Oral Medication Intake: Whole with Liquid Compensatory Strategies and Precautions to be Taken for Safe Swallow: Sitting Upright (90 deg) Small Bites and Sips Alternate Liquids/Solids Rate of Ingestion Change Oral Check Avoid Specific Foods Supervision While Eating and Drinking for Safe Swallow: Total Assistance Swallowing Recommended Treatments: Compens. Strategy Educat. Recommendation for Speech: Inpatient Speech Therapy Senior Information Security Architect Clinican/Clinical Fellow: No Supervisory Statement: I have reviewed and agree with the student/clinical fellow's documentation: N/A Speech Language Pathologist: Yashira Robert M.A., CCC-GEOLOGICAL SURVEY FIELD ASSISTANT
--- NOTE | 2021-05-07 13:04 | P.PNIM_ITS ---
Subjective Subjective Date of Service: 05/07/21 Interval History: the patient was seen and evaluated this morning Laying in bed, more alert and interactive this morning Very weak and lethargic cannot move her extremities No reported other overnight events. Systemic review: Not interested in talking but denies any pain or difficulty breathing Physical Exam Vital Signs: Vital Signs: Last Vital Signs Temp 98.3 F 05/07/21 12:00 Pulse 77 05/07/21 12:00 Resp 20 05/07/21 12:00 BP 148/65 H 05/07/21 12:00 Pulse Ox 97 05/07/21 12:00 Body Mass Index 24.5 Const: Other: Constitutional : Alert with stimulation, more responsive to stimuli, oriented about self and family members Neck : Normal inspection, Supple Cardiovascular : RRR, S1 S2, no lower extremity edema Respiratory : Fair bilateral air entry, no crackles, wheezes or rhonchi Gastrointestinal: soft, lax, Normal bowel sounds, Non tender Skin : Warm/Dry Neurological : Alert with vocal stimuli, very weak and cannot move extremities as a result of that, no focality though Objective Data Current Medications Generic Name Dose Route Start Last Admin Trade Name Sgq PRN Reason Stop Dose Admin Amlodipine Besylate 10 mg 04/27/21 14:10 05/07/21 08:54 Amlodipine Besylate 10 Mg Tablet PO 10 mg DAILY BELEM Administration Protocol Atorvastatin Calcium 10 mg 04/27/21 09:00 05/07/21 08:54 Atorvastatin Calcium 10 Mg Tablet PO 10 mg DAILY BELEM Administration Enoxaparin Sodium 40 mg 05/04/21 08:00 05/07/21 08:54 Enoxaparin Sodium 40 Mg/0.4 Ml Syringe SUBCUT 40 mg Q24H BELEM Administration Folic Acid 1 mg 04/28/21 09:00 05/07/21 08:54 Folic Acid 1 Mg Tablet PO 1 mg DAILY BELEM Administration Dextrose/Sodium Chloride 1,000 mls @ 50 mls/hr 05/05/21 21:30 05/06/21 17:55 D5ns IVCONT 50 mls/hr .Q20H BELEM Administration Lidocaine HCl 1 appl 04/27/21 09:00 05/07/21 08:54 Lidocaine 4 % Cream Kit TOPICAL 1 appl DAILY BELEM Administration Protocol Megestrol Acetate 400 mg 04/30/21 09:00 05/07/21 08:54 Megestrol Acetate 400 Mg/10 Ml Oral.Susp PO 400 mg DAILY BELEM Administration Senna 17.2 mg 04/26/21 20:24 Sennosides 8.6 Mg Tablet PO BEDTIME PRN Constipation Sodium Chloride 3 ml 04/27/21 00:00 05/07/21 08:54 0.9 % Sodium Chloride Flush 3 Ml Syringe IVFLUSH 3 ml QSHIFT BELEM Administration Labs CBC & Chem 7: 05/04/21 05:07 05/06/21 06:03 Quality Stroke Does the patient have a stroke diagnosis?: No VTE Prior VTE?: No VTE Risk Level:: Medical - moderate - high VTE Device Contraindication: N/A - Device Ordered VTE Drug Contraindication: N/A - Med Ordered Assessment and Plan (1) Acute kidney failure: Status: Acute Assessment and Plan: 85-year-old female with a past medical history of hypertension, hyperlipidemia, question early dementia, recurrent UTI, history of encephalopathy presented to the hospital with a chief complaint of recurrent falls; recently finished a course of Bactrim for UTI; noted to have T12 compression fracture, LILY, hyperkal emia, transaminitis. Recurrent falls secondary to physical deconditioning Fall precautions PT recommending long-term care Patient is very weak and cannot move her extremities at this point from being in the bed for the period of time. Not interested in doing physical therapy with a plan to go home for hospice Metabolic encephalopathy Mentation improving slowly Seems to be secondary to hypoactive delirium, medications Discontinue gabapentin Recurrent reorientation and keep her active Moderate to severe cervical spine spondylosis/T12 compression fracture: MRI - t12 fracture is acute pod 4 kyphoplasty patient is unable to participate with PT moderate protein calorie malnutrition ensure megace appetite somewhat improved LILY/hyperkalemia arb held resolved Hypertension amlodipine Transaminitis Trended down possible NAFLD Dispo, hospice team evaluated the patient with a plan to discharge her home when everything is rate for her to go.
[2021-05-07] MEDS: Dextrose 5 % and 0.9 % NaCl 1,000 ML 50 ML IVCONT (14:22)
[2021-05-08] VITALS (7 sets, daily range): BP systolic 109–171; BP diastolic 56–77; PULSE 80–92; RESP 15–18; TEMP 36.1–37.2; O2SAT 94–98
[2021-05-08] MEDS: Megestrol Acetate 400 MG/10 ML ORAL.SUSP PO (08:38)
[2021-05-08] MEDS: Dextrose 5 % and 0.9 % NaCl 1,000 ML 50 ML IVCONT (08:38)
[2021-05-08] MEDS: Folic Acid 1 MG TABLET PO (08:38)
[2021-05-08] MEDS: Atorvastatin Calcium 10 MG TABLET PO (08:38)
[2021-05-08] MEDS: amLODIPine Besylate 10 MG TABLET PO (08:38)
[2021-05-08] MEDS: 0.9 % Sodium Chloride Flush 3 ML SYRINGE IVFLUSH ×2 (08:39→21:51)
[2021-05-08] MEDS: Lidocaine 4 % Cream KIT 1 APPL TOPICAL (08:39)
[2021-05-08] MEDS: Enoxaparin Sodium 40 MG/0.4 ML SYRINGE SUBCUT (08:39)
[2021-05-08] MEDS: Acetaminophen 325 MG TABLET 650 MG PO (13:46)
--- NOTE | 2021-05-08 14:42 | HO.PM.IMPN ---
Subjective Subjective Date of Service: 05/08/21 Interval History: the patient was seen and evaluated this morning Laying in bed, alert with stimulation, eating part of her meals Very weak and lethargic cannot move her extremities No reported other overnight events. Systemic review: Not interested in talking but denies any pain or difficulty breathing Physical Exam Vital Signs: Vital Signs: Last Vital Signs Temp 98 F 05/08/21 11:09 Pulse 92 05/08/21 11:09 Resp 16 05/08/21 11:09 BP 156/62 H 05/08/21 11:09 Pulse Ox 97 05/08/21 11:09 Body Mass Index 24.5 Const: Other: Constitutional : Alert with stimulation, more responsive to stimuli, oriented about self and family members Neck : Normal inspection, Supple Cardiovascular : RRR, S1 S2, no lower extremity edema Respiratory : Fair bilateral air entry, no crackles, wheezes or rhonchi Gastrointestinal: soft, lax, Normal bowel sounds, Non tender Skin : Warm/Dry Neurological : Alert with vocal stimuli, very weak and cannot move extremities as a result of that, no focality though Objective Data Current Medications Generic Name Dose Route Start Last Admin Trade Name Freq PRN Reason Stop Dose Admin Acetaminophen 650 mg 05/08/21 13:35 05/08/21 13:46 Acetaminophen 325 Mg Tablet PO 650 mg Q4H PRN Administration Pain, Mild (Pain Scale 1-3) Amlodipine Besylate 10 mg 04/27/21 14:10 05/08/21 08:38 Amlodipine Besylate 10 Mg Tablet PO 10 mg DAILY BELEM Administration Protocol Atorvastatin Calcium 10 mg 04/27/21 09:00 05/08/21 08:38 Atorvastatin Calcium 10 Mg Tablet PO 10 mg DAILY BELEM Administration Enoxaparin Sodium 40 mg 05/04/21 08:00 05/08/21 08:39 Enoxaparin Sodium 40 Mg/0.4 Ml Syringe SUBCUT 40 mg Q24H BELEM Administration Folic Acid 1 mg 04/28/21 09:00 05/08/21 08:38 Folic Acid 1 Mg Tablet PO 1 mg DAILY BELEM Administration Dextrose/Sodium Chloride 1,000 mls @ 50 mls/hr 05/05/21 21:30 05/08/21 08:38 D5ns IVCONT 50 mls/hr .Q20H BELEM Administration Lidocaine HCl 1 appl 04/27/21 09:00 05/08/21 08:39 Lidocaine 4 % Cream Kit TOPICAL 1 appl DAILY BELEM Administration Protocol Megestrol Acetate 400 mg 04/30/21 09:00 05/08/21 08:38 Megestrol Acetate 400 Mg/10 Ml Oral.Susp PO 400 mg DAILY BELEM Administration Senna 17.2 mg 04/26/21 20:24 Sennosides 8.6 Mg Tablet PO BEDTIME PRN Constipation Sodium Chloride 3 ml 04/27/21 00:00 05/08/21 08:39 0.9 % Sodium Chloride Flush 3 Ml Syringe IVFLUSH 3 ml QSHIFT BELEM Administration Labs CBC & Chem 7: 05/04/21 05:07 05/06/21 06:03 Quality Stroke Does the patient have a stroke diagnosis?: No VTE Prior VTE?: No VTE Risk Level:: Medical - moderate - high VTE Device Contraindication: N/A - Device Ordered VTE Drug Contraindication: N/A - Med Ordered Assessment and Plan (1) Acute kidney failure: Status: Acute Assessment and Plan: 85-year-old female with a past medical history of hypertension, hyperlipidemia, question early dementia, recurrent UTI, history of encephalopathy presented to the hospital with a chief complaint of recurrent falls; recently finished a course of Bactrim for UTI; noted to have T12 compression fracture, LILY, hyperkalemia, transaminitis. Recurrent falls secondary to physical deconditioning Fall precautions PT recommending long-term care Patient is very weak and cannot move her extremities at this point from being in the bed for the period of time. Not interested in doing physical therapy with a plan to go home for hospice Metabolic encephalopathy Mentation improving slowly Seems to be secondary to hypoactive delirium, medications Discontinue gabapentin Recurrent reorientation and keep her active Moderate to severe cervical spine spondylosis/T12 compression fracture: MRI - t12 fracture is acute pod 5 kyphoplasty patient is unable to participate with PT moderate protein calorie malnutrition ensure megace appetite somewhat improved LILY/hyperkalemia arb held resolved Hypertension amlodipine Transaminitis Trended down possible NAFLD Dispo, hospice team evaluated the patient with a plan to discharge her home when everything is ready for her to go.
[2021-05-09] VITALS (8 sets, daily range): BP systolic 140–167; BP diastolic 64–78; PULSE 78–89; RESP 18; TEMP 36–37.4; O2SAT 95–98; BMI 24.4
[2021-05-09] MEDS: Megestrol Acetate 400 MG/10 ML ORAL.SUSP PO (08:31)
[2021-05-09] MEDS: Atorvastatin Calcium 10 MG TABLET PO (08:31)
[2021-05-09] MEDS: 0.9 % Sodium Chloride Flush 3 ML SYRINGE IVFLUSH ×3 (08:31→23:02)
[2021-05-09] MEDS: amLODIPine Besylate 10 MG TABLET PO (08:31)
[2021-05-09] MEDS: Acetaminophen 325 MG TABLET 650 MG PO (08:31)
[2021-05-09] MEDS: Folic Acid 1 MG TABLET PO (08:31)
[2021-05-09] MEDS: Enoxaparin Sodium 40 MG/0.4 ML SYRINGE SUBCUT (08:31)
[2021-05-09] MEDS: Lidocaine 4 % Cream KIT 1 APPL TOPICAL (08:32)
--- NOTE | 2021-05-09 13:05 | ECG_ITS ---
Test Reason : change in heart rhythm Blood Pressure : / mmHG Vent. Rate : 084 BPM Atrial Rate : 084 BPM P-R Int : 136 ms QRS Dur : 076 ms QT Int : 288 ms P-R-T Axes : 012 -38 099 degrees QTc Int : 340 ms Normal sinus rhythm Left axis deviation Nonspecific T wave abnormality Abnormal ECG When compared with ECG of 26-APR-2021 14:54, Premature atrial complexes are no longer Present Criteria for Septal infarct are no longer Present Nonspecific T wave abnormality now evident in Inferior leads Nonspecific T wave abnormality, worse in Lateral leads QT has shortened Referred By: Nataliya Ness Electronically Signed By:Michael Palomares
--- NOTE | 2021-05-09 13:21 | HO.PM.IMPN ---
Subjective Subjective Date of Service: 05/09/21 Interval History: the patient was seen and evaluated this morning Laying in bed, alert with stimulation, eating part of her meals Converted back to sinus rhythm Family at the bedside Very weak and lethargic cannot move her extremities No reported other overnight events. Systemic review: Not able to talk much but denies any pain or difficulty breathing Physical Exam Vital Signs: Vital Signs: Last Vital Signs Temp 96.8 F 05/09/21 10:59 Pulse 85 05/09/21 10:59 Resp 18 05/09/21 10:59 BP 154/76 H 05/09/21 10:59 Pulse Ox 98 05/09/21 10:59 Body Mass Index 24.4 Const: Other: Constitutional : Alert with stimulation, more responsive to stimuli, oriented about self and family members Neck : Normal inspection, Supple Cardiovascular : RRR, S1 S2, no lower extremity edema Respiratory : Fair bilateral air entry, no crackles, wheezes or rhonchi Gastrointestinal: soft, lax, Normal bowel sounds, Non tender Skin : Warm/Dry Neurological : Alert with vocal stimuli, very weak and cannot move extremities as a result of that, no focality though Objective Data Current Medications Generic Name Dose Route Start Last Admin Trade Name Freq PRN Reason Stop Dose Admin Acetaminophen 650 mg 05/08/21 13:35 05/09/21 08:31 Acetaminophen 325 Mg Tablet PO 650 mg Q4H PRN Administration Pain, Mild (Pain Scale 1-3) Amlodipine Besylate 10 mg 04/27/21 14:10 05/09/21 08:31 Amlodipine Besylate 10 Mg Tablet PO 10 mg DAILY BELEM Administration Protocol Atorvastatin Calcium 10 mg 04/27/21 09:00 05/09/21 08:31 Atorvastatin Calcium 10 Mg Tablet PO 10 mg DAILY BELEM Administration Enoxaparin Sodium 40 mg 05/04/21 08:00 05/09/21 08:31 Enoxaparin Sodium 40 Mg/0.4 Ml Syringe SUBCUT 40 mg Q24H BELEM Administration Folic Acid 1 mg 04/28/21 09:00 05/09/21 08:31 Folic Acid 1 Mg Tablet PO 1 mg DAILY BELEM Administration Lidocaine HCl 1 appl 04/27/21 09:00 05/09/21 08:32 Lidocaine 4 % Cream Kit TOPICAL 1 appl DAILY BELEM Administration Protocol Megestrol Acetate 400 mg 04/30/21 09:00 05/09/21 08:31 Megestrol Acetate 400 Mg/10 Ml Oral.Susp PO 400 mg DAILY BELEM Administration Senna 17.2 mg 04/26/21 20:24 Sennosides 8.6 Mg Tablet PO BEDTIME PRN Constipation Sodium Chloride 3 ml 04/27/21 00:00 05/09/21 08:31 0.9 % Sodium Chloride Flush 3 Ml Syringe IVFLUSH 3 ml QSHIFT BELEM Administration Labs CBC & Chem 7: 05/04/21 05:07 05/06/21 06:03 Quality Stroke Does the patient have a stroke diagnosis?: No VTE Prior VTE?: No VTE Risk Level:: Medical - moderate - high VTE Device Contraindication: N/A - Device Ordered VTE Drug Contraindication: N/A - Med Ordered Assessment and Plan (1) Acute kidney failure: Status: Acute Assessment and Plan: 85-year-old female with a past medical history of hypertension, hyperlipidemia, question early dementia, recurrent UTI, history of encephalopathy presented to the hospital with a chief complaint of recurrent falls; recently finished a course of Bactrim for UTI; noted to have T12 compression fracture, LILY, hyperkalemia, transaminitis. Recurrent falls secondary to physical deconditioning Fall precautions Patient is very weak and cannot move her extremities at this point from being in the bed for the period of time. Not interested in doing physical therapy with a plan to go home for hospice Metabolic encephalopathy improving slowly Seems to be secondary to hypoactive delirium, medications Discontinue gabapentin Recurrent reorientation and keep her active Moderate to severe cervical spine spondylosis/T12 compression fracture: MRI - t12 fracture is acute pod 6 kyphoplasty patient is unable to participate with PT moderate protein calorie malnutrition ensure megace appetite somewhat improved LILY/hyperkalemia resolved Hypertension amlodipine Transaminitis Trended down possible NAFLD Dispo, hospice team evaluated the patient with a plan to discharge her home when everything is ready for her to go.
--- NOTE | 2021-05-09 15:30 | MHC.CM.PN ---
AT THE REQUEST OF THE PTS HCP, A CONSULT HAD BEEN REQUESTED FROM [facility]. HL;Beryl LIAISON SPOKE TO FAMILY AND INFORMED CM THEY WOULD NOT BE MEETING UNTIL MONDAY WHEN THE PTS SON, MARIE, WHICH WHOM SHE LIVES, RETURNS FROM VACATION. P[TS SON MARIE AND Geena-José VILLAGOMEZE WERE PRESENT THIS MORNING AND INDICATED THEY WANTED TO TAKE THE PT HOME SOON POSSIBLE. THEY REPORT THEY HAVE BEEN TAKING CARE OF HER FOR 3+ MONTHS AND THEY HAVE ARRANGED FOR 2 HOME HEALTH AIDES TO COME IN WELL. THEY ARE AWARE THE [facility] HAD ALREADY SPOKEN TO [facility] SO WERE AGREEABLE TO CM CONTACTING THEM. CM CONTACTED THEM AND ASKED THAT THEY REACH OUT TO THE PTS SON MARIE TO DISCUSS ARRANGEMENTS OR CALL CM DIRECTLY TO SET UP A TIME. CM CHECKED WITH PTS SON SEVERAL TIMES AND HE INDICATED HE HAD NOT HEARD FROM ANYONE. CM REACHED OUT TO [facility] AND HOSPICE PT WAS ACTIVE WITH THEIR [facility] SERVICE QUALITY COORDINATOR. CM RECEIVED A RETURN CALL ABOUT 30 MINUTES LATER INDICATING THEY WOULD MAKE ARRANGEMENTS WITH PTS SON FOR THE BED TO BE DELIVERED AND PT ADMITTED TO SERVICE TOMORROW. THEY REQUESTED SCRIPTS FOR MORPHINE AND LORAZEPAM BE SENT TO [facility] IN [place]. PER [facility] LIAISONGREYSON, THEY EXPECT EVERYTHING WILL BE READY FOR PT TO GO HOME LATE TOMORROW MORNING
[2021-05-10 04:00] VITALS: BP 164/83; PULSE 88; RESP 18; TEMP 36.9; O2SAT 95
[2021-05-10 05:36] VITALS: BMI 26.0
[2021-05-10 07:27] VITALS: BP 166/69; PULSE 88; RESP 18; TEMP 37.2; O2SAT 96
[2021-05-10] MEDS: Enoxaparin Sodium 40 MG/0.4 ML SYRINGE SUBCUT (10:24)
[2021-05-10] MEDS: 0.9 % Sodium Chloride Flush 3 ML SYRINGE IVFLUSH (10:25)
[2021-05-10] MEDS: Lidocaine 4 % Cream KIT 1 APPL TOPICAL (10:25)
[2021-05-10 10:48] VITALS: BP 158/66; PULSE 86; RESP 16; TEMP 37.1; O2SAT 96
--- NOTE | 2021-05-10 12:41 | P.DS_ITS ---
DS: Providers Provider Date of Service: 05/10/21 Date of admission: 04/26/21 20:24 Primary care physician: Vashti Quiroz NP Consults: 04/26/21 20:45 Consult to Neurology Routine Consulting Provider: [facility] Reason for consultation: Rec fall 04/26/21 20:47 Consult to Gastroenterology Routine Consulting Provider: Hu Cooley Reason for consultation: hematemesis; Transaminitis DS: Diagnosis Discharge Diagnosis (1) Acute kidney failure: Status: Acute (2) Falls: Status: Acute (3) Compression fracture of T12 vertebra: Status: Acute (4) Acute hyperkalemia: Status: Acute (5) Elevated LFTs: Status: Acute (6) Hospice care patient: Status: Acute (7) Alzheimer's disease: Status: Acute DS: Medications Discharge Medications Home Medications: Home Medications Medication Instructions Recorded Confirmed amlodipine 1 tab PO DAILY 04/26/21 04/26/21 atorvastatin 1 tab PO DAILY 04/26/21 04/26/21 Previous Rx's Medication Instructions Recorded folic acid 1 mg PO DAILY #0 tab 05/04/21 megestrol 400 mg PO DAILY #0 ml 05/04/21 lorazepam 0.5 mg PO Q4H PRN #24 tab 05/10/21 morphine 4 mg PO Q4H PRN #100 ml 05/10/21 DS: Summary Hospital Course Hospital Course: The patient had prolonged hospital course for full details please returned to EMR. Admission note HPI 85-year-old female with a past medical history of hypertension, hyperlipidemia, recurrent UTI, question early dementia presented to the hospital with a chief complaint of fall. Most of the history obtained from the patient and patient's son Reportedly patient has been having recurrent falls- about 7 falls in the past 3 months; today patient was trying to get of the stair showed only she fell backwards and hit her head; witnessed by a home health aide. Denies any loss of consciousness. Patient denies any chest pain palpitations lightheadedness or dizziness before or after the episode. Denies any numbness tingling or focal weakness. Post fall complains of back pain. Denies any urinary retention or stool incontinence. As per the patient's son post episode patient had an episode of vomiting with pink-tinged vomitus.Patient usually walks with the help of a walker at home and has physical therapy twice a week. Denies any difficulty swallowing. Denies any urinary complaints. patient's son reported that patient had 2 episodes of UTI in the past couple weeks; finished a course of Bactrim yesterday. Also mentioned that whenever she gets UTI patient becomes confused / encephalopathic. patient's son also reported that over the past few days patient has not been eating good Hospital course Admitted after sustaining a fall found to have compress and fracture in T12 treated with pain medications and kyphoplasty. Patient continue to deteriorate physically and mentally S she became encephalopathic which might be improved after changing her medication and recurrent reorientation but she was unable to ambulate or even participate with physical therapy. After discussions with family decision was made to make her hospice at home. Arrangements were done and she will be discharged home on morphine Time Spent with Patient Time attestation: Total time spent providing and/or coordinating discharge services: Discharge coordination time: Greater than 30 minutes Quality: Stroke Does the patient have a stroke diagnosis?: No Physical Exam Vital Signs: Vital Signs: Last Vital Signs Temp 98.8 F 05/10/21 10:48 Pulse 86 05/10/21 10:48 Resp 16 05/10/21 10:48 BP 158/66 H 05/10/21 10:48 Pulse Ox 96 05/10/21 10:48 Body Mass Index 26.0 Const: Other: Constitutional : Alert, more responsive and interactive, oriented about self and family members Neck : Normal inspection, Supple Cardiovascular : RRR, S1 S2, no lower extremity edema Respiratory : Fair bilateral air entry, no crackles, wheezes or rhonchi Gastrointestinal: soft, lax, Normal bowel sounds, Non tender Skin : Warm/Dry Neurological : Alert with vocal stimuli, very weak and cannot move extremities as a result of that, no focality though Discharge Plan Discharge Patient Disposition: Hospice - Home Discharge Diagnosis: t12 fracture Referrals: lonnie gamble [Other] - 1 Week Vashti Quiroz NP [Primary Care Provider] - 1 Week Discharge Medications: New megestrol 400 mg/10 mL (10 mL) Suspension 400 mg PO DAILY Qty: 0 RF: 0 folic acid 1 mg Tablet 1 mg PO DAILY Qty: 0 RF: 0 morphine 20 mg/5 mL (4 mg/mL) solution 4 mg PO Q4H PRN (Reason: dyspnea) Qty: 100 RF: 0 lorazepam 0.5 mg tablet 0.5 mg PO Q4H PRN (Reason: anxiety) Qty: 24 RF: 0 Continued atorvastatin 10 mg tablet 1 tab PO DAILY RF: 0 amlodipine 10 mg tablet 1 tab PO DAILY RF: 0 Discontinued quetiapine 25 mg tablet 1 tab PO DAILY RF: 0 sulfamethoxazole-trimethoprim 800-160 mg tablet 1 tab PO Q12H RF: 0 irbesartan 300 mg tablet 1 tab PO DAILY RF: 0 Discharge Orders: Discharge Order (Routine); Ordered 05/10/21 Ordered By: Nataliya Ness Diet: advance to usual diet Activity on Discharge: As tolerated Stand Alone Forms: Patient Portal Discharge page Care Plan Goals: Read below Health Concerns: t12 fracture physical deconditioning Plan of Treatment: Home hospice Assessment: see above
--- NOTE | 2021-05-10 12:56 | MHC.CM.PN ---
pt being dcd today at 5:00 to sons home with hospice thru [facility] by josie
[2021-05-10 15:04] VITALS: BP 146/52; PULSE 93; RESP 18; TEMP 36.8; O2SAT 98
== END 2021-05-10 17:28 | disposition hospice, home (50) | DRG 515 ==
LOC: HO.ED 19:14 → HO.IMC 20:40
PROVIDERS: Emergency Medicine; Internal Medicine; Radiology Diagnostic Radiology; Admitting Provider Hospitalist; Emergency Provider Emergency Medicine; PCP Nurse Practitioner; Visit Provider Student in an Organized Health Care Education/Training Program
PROC: 0PS43ZZ Reposition Thoracic Vertebra, Percutaneous Approach (ICD-10-PCS; principal; 2021-05-03 13:00)
DX: S22.088A Other fracture of T11-T12 vertebra, initial encounter for closed fracture (principal); G93.41 Metabolic encephalopathy; N17.9 Acute kidney failure, unspecified; E44.0 Moderate protein-calorie malnutrition; E78.5 Hyperlipidemia, unspecified; I10 Essential (primary) hypertension; M47.812 Spondylosis without myelopathy or radiculopathy, cervical region; R29.6 Repeated falls; Z91.81 History of falling; E87.5 Hyperkalemia; G30.9 Alzheimer's disease, unspecified; K76.0 Fatty (change of) liver, not elsewhere classified; F02.80 Dementia in other diseases classified elsewhere, unspecified severity, without behavioral disturbance, psychotic disturbance, mood disturbance, and anxiety; W18.30XA Fall on same level, unspecified, initial encounter; E53.8 Deficiency of other specified B group vitamins; Z68.26 Body mass index [BMI] 26.0-26.9, adult; Y93.9 Activity, unspecified; Y92.009 Unspecified place in unspecified non-institutional (private) residence as the place of occurrence of the external cause; Y99.9 Unspecified external cause status; Z20.822 Contact with and (suspected) exposure to COVID-19; Z79.899 Other long term (current) drug therapy
CPT/HCPCS: 22513; 36415; 70450; 71250; 72125; 72128; 72146; 76705; 80048; 80061; 80076; 81001; 82140; 82550; 82607; 82746; 83036; 83735; 84443; 84484; 85025; 85027; 85610; 85730; 86704; 86706; 86709; 86803; 87040; 87340; 87635; 92610; 93005; 97110; 97162; 97166; 97530; 97535; 99285; C1758; J1650; J2270; J2370; J2405